=== PATIENT | male | born 1955 | race Caucasian/White ===

== ENCOUNTER 2020-05-22 08:01 | Outpatient (CLI) | payer MEDICARE, SELFPAY ==
--- NOTE | ~2020-05-22 | XR_ITS ---
EXAMINATION: XR chest 2V DATE: 05/22/2020 08:23 INDICATION: Cough TECHNIQUE: PA and lateral views of the chest were obtained. COMPARISON: Chest radiograph dated 01/25/2019 FINDINGS: The lungs remain clear with no focal airspace opacities, pulmonary edema, pleural effusion or pneumot horax. The cardiomediastinal silhouette is normal. Partially visualized right total shoulder arthropl asty. IMPRESSION: 1. No acute cardiopulmonary disease. Reviewed, dictated and finalized at location A.
[2020-05-22 08:25] LABS: Basophils Percent Auto 0.5 % (0.2-1.2); Eosinophils Absolute Auto 0.4 K/mm3 (0-0.3); Eosinophils Percent Auto 7.1 % (0-4.4); Hematocrit 44.2 % (42.0-52.0); Hemoglobin 15.1 g/dL (14.0-18.0); Immature Granulocyte Absolute 0.01 K/mm3 (0.00-0.031); Immature Granulocyte Percent A 0.2 % (0-0.5); Lymphocytes Percent Auto 9.9 % (18.3-44.2); Mean Corpuscular HGB Conc 34.2 g/dl (32-36); Mean Corpuscular Hemoglobin 32.3 pg (26-34); Mean Corpuscular Volume 94.6 fl (80-100); Mean Platelet Volume 11.1 fl (7.4-10.4); Monocytes Absolute Auto 0.6 K/mm3 (0.1-0.6); Monocytes Percent Auto 9.2 % (2.6-8.5); Neutrophils Absolute Auto 4.5 K/mm3 (1.3-6.7); Neutrophils Percent Auto 73.1 % (45.5-73.1); Platelet Count Result 186 k/mm3 (150-375); Red Blood Count 4.67 M/mm3 (4.6-6.20); Red Cell Distribution Width 12.1 % (11.5-14.5); White Blood Count 6.1 K/mm3 (4.5-10.0)
[2020-05-22 08:32] LABS: Cholesterol 142 mg/dL (0-200); HDL Direct 57 mg/dL; Triglycerides 151 mg/dL (<150)
[2020-05-22 08:42] LABS: LDL Cholesterol Direct 62 mg/dL
== END 2020-05-22 08:02 | disposition home or self-care (01) ==
PROVIDERS: PCP Internal Medicine; Visit Provider Internal Medicine
DX: E78.5 Hyperlipidemia, unspecified (principal); R05 Cough; Z79.899 Other long term (current) drug therapy
CPT/HCPCS: 36415; 71046; 80061; 84443; 85025

== ENCOUNTER 2020-06-11 07:52 | Outpatient (CLI) | payer MEDICARE, SELFPAY ==
[2020-06-11 08:39] LABS: CRP 0.8 mg/dL (<1.0); Uric Acid 6.4 mg/dL (3.5-8.5)
[2020-06-11 08:40] LABS: Rheumatoid Factor < 8.6 IU/ML (<12)
[2020-06-11 08:49] LABS: Erythrocyte Sedimentation Rate 19 mm/hr (0-20)
[2020-06-16 14:53] LABS: Anti Cyclic Citrullinated Pept <16 Units (<20)
[2020-06-17 14:01] LABS: Reference Lab Test Result Positive
== END 2020-06-11 07:53 | disposition home or self-care (01) ==
PROVIDERS: PCP Internal Medicine; Visit Provider Internal Medicine
DX: M10.9 Gout, unspecified (principal); Z86.19 Personal history of other infectious and parasitic diseases
CPT/HCPCS: 36415; 84550; 85652; 86140; 86200; 86430; 86769

== ENCOUNTER 2020-06-17 14:13 | Outpatient (CLI) | payer MEDICARE, SELFPAY ==
--- NOTE | ~2020-06-17 | CT_ITS ---
EXAMINATION: CT sinus wo con EXAM DATE: 06/17/2020 14:54 INDICATION: Generalized headache. TECHNIQUE: Spiral CT of the sinuses was acquired in the axial plane. Coronal and sagittal reformatte d images were also reviewed. The dose-length product (DLP) for this examination was 297.72 mGy-cm. Iterative reconstruction (ASIR) was used as dose reduction technique. Comparison is made to prior exa mination from 08/08/2008. FINDINGS: The sinuses are normally developed. There is mild bilateral ethmoid mucoperiosteal thick ening. No sinus air-fluid levels. The ostiomeatal units are patent. There is no sinus wall thicken ing. There is mild to moderate leftward nasal septal deviation. The mastoid air cells and middle ears are well aerated. External auditory canals are patent. The orbits and visualized soft tissu es are unremarkable. IMPRESSION: Mild ethmoid mucoperiosteal thickening. Reviewed, dictated and finalized at location A.
--- NOTE | ~2020-06-17 | CT_ITS ---
EXAMINATION: CT brain wo/w con DATE: 06/17/2020 14:55 INDICATION: Generalized headache TECHNIQUE: Computed tomography (CT) of the head was performed without and subsequently with 100 cc Om nipaque 350 intravenous contrast. The mA was adjusted according to patient size. Iterative reconstruc tion technique was employed. Exam dose: 1210.67 mGy-cm total exam DLP. COMPARISON: None FINDINGS: No intracranial mass lesion or hemorrhage or cerebrovascular accident is evident. No midlin e shift or mass effect. Bilateral carotid siphon internal carotid artery calcifications are noted. There is nonspecific dimin ished attenuation of the cerebral white matter, likely due to chronic small vessel ischemic changes. No subdural or epidural hematoma. No fracture or bone destruction of the cranial vault. There is some soft tissue thickening of the eth moid air cells but the included paranasal sinuses and mastoid air cells are otherwise unremarkable. IMPRESSION: Cerebral atherosclerosis and likely chronic small vessel ischemic changes of the cerebra l white matter No acute intracranial abnormality Reviewed, dictated and finalized at Location A. Reviewed, dictated and finalized at location B. IMPRESSION: Cerebral atherosclerosis and likely chronic small vessel ischemic changes of the cerebral white matter No acute intracranial abnormality
[2020-06-17 14:43] LABS: Estimated Glomerular Filt Rate > 60
== END 2020-06-17 14:14 | disposition home or self-care (01) ==
PROVIDERS: PCP Internal Medicine; Visit Provider Internal Medicine
DX: R51 Headache (principal); I67.2 Cerebral atherosclerosis
CPT/HCPCS: 36415; 70470; 70486; Q9967

== ENCOUNTER 2020-09-24 07:15 | Outpatient (CLI) | payer MEDICARE, SELFPAY ==
[2020-09-24 09:01] LABS: Alanine Aminotransferase 48 U/L (4-50); Albumin Level 4.4 g/dL (3.5-5.1); Alkaline Phosphatase 81 U/L (38-126); Anion Gap 9 mmol/L (8-16); Aspartate Amino Transferase 61 U/L (17-59); Bilirubin,Total 0.6 mg/dL (0.2-1.3); Blood Urea Nitrogen 31 mg/dL (9-20); Calcium 9.4 mg/dL (8.4-10.2); Carbon Dioxide 28 mmol/L (22-30); Chloride 102 mmol/L (98-107); Cholesterol 157 mg/dL (0-200); Estimated Glomerular Filt Rate > 60; Glucose 100 mg/dL (75-110); HDL Direct 61 mg/dL; Potassium 4.5 mmol/L (3.4-5.0); Sodium 139 mmol/L (137-145); Triglycerides 71 mg/dL (<150)
[2020-09-24 09:08] LABS: LDL Cholesterol Direct 69 mg/dL
== END 2020-09-24 07:16 | disposition home or self-care (01) ==
PROVIDERS: PCP Internal Medicine; Visit Provider Internal Medicine
DX: E78.5 Hyperlipidemia, unspecified (principal); I25.10 Atherosclerotic heart disease of native coronary artery without angina pectoris; Z79.899 Other long term (current) drug therapy; Z86.19 Personal history of other infectious and parasitic diseases
CPT/HCPCS: 36415; 80053; 80061; 86769

== ENCOUNTER 2020-11-26 09:46 | Outpatient (NON) | payer MEDICARE, SELFPAY ==
[2020-11-27 00:16] LABS: SARS-CoV-2 RNA PCR Negative
== END 2020-11-26 09:47 ==
LOC: ANHCOVIDDT 09:48
PROVIDERS: PCP Internal Medicine; Visit Provider Internal Medicine
DX: R05 Cough (principal); Z20.822 Contact with and (suspected) exposure to COVID-19
CPT/HCPCS: C9803; U0003; U0005

== ENCOUNTER 2020-12-17 07:56 | Outpatient (CLI) | payer MEDICARE, SELFPAY ==
[2020-12-17 08:25] LABS: Basophils Absolute Auto 0.1 K/mm3 (0.0-0.1); Basophils Percent Auto 0.8 % (0.2-1.2); Eosinophils Absolute Auto 0.4 K/mm3 (0-0.3); Eosinophils Percent Auto 6.7 % (0-4.4); Hematocrit 44.9 % (42.0-52.0); Hemoglobin 15.5 g/dL (14.0-18.0); Immature Granulocyte Absolute 0.01 K/mm3 (0.00-0.031); Immature Granulocyte Percent A 0.2 % (0-0.5); Lymphocytes Absolute Auto 1.41 K/mm3 (0.9-3.2); Lymphocytes Percent Auto 23.5 % (18.3-44.2); Mean Corpuscular HGB Conc 34.5 g/dl (32-36); Mean Corpuscular Hemoglobin 31.8 pg (26-34); Mean Platelet Volume 10.8 fl (7.4-10.4); Monocytes Absolute Auto 0.5 K/mm3 (0.1-0.6); Monocytes Percent Auto 8.2 % (2.6-8.5); Neutrophils Absolute Auto 3.7 K/mm3 (1.3-6.7); Neutrophils Percent Auto 60.6 % (45.5-73.1); Platelet Count Result 163 k/mm3 (150-375); Red Blood Count 4.88 M/mm3 (4.6-6.20); Red Cell Distribution Width 11.8 % (11.5-14.5)
[2020-12-17 08:38] LABS: Alanine Aminotransferase 58 U/L (4-50); Albumin Level 4.2 g/dL (3.5-5.1); Alkaline Phosphatase 78 U/L (38-126); Anion Gap 5 mmol/L (8-16); Aspartate Amino Transferase 59 U/L (17-59); Bilirubin,Total 0.9 mg/dL (0.2-1.3); Blood Urea Nitrogen 17 mg/dL (9-20); Calcium 9.7 mg/dL (8.4-10.2); Carbon Dioxide 31 mmol/L (22-30); Chloride 102 mmol/L (98-107); Cholesterol 153 mg/dL (0-200); Estimated Glomerular Filt Rate > 60; Glucose 97 mg/dL (75-110); HDL Direct 60 mg/dL; Potassium 4.4 mmol/L (3.4-5.0); Sodium 138 mmol/L (137-145); Triglycerides 79 mg/dL (<150); Uric Acid 6.8 mg/dL (3.5-8.5)
[2020-12-17 08:41] LABS: Hemoglobin A1C 5.1 % (<5.7)
[2020-12-17 08:51] LABS: LDL Cholesterol Direct 69 mg/dL
[2020-12-19 21:37] LABS: Homocysteine 8.1 umol/L (<11.4)
[2020-12-19 22:08] LABS: Vitamin D 1,25 (OH)2 Total 56 pg/mL (18-72); Vitamin D2 1,25 (OH)2 <8 pg/mL; Vitamin D3 1,25 (OH)2 56 pg/mL
== END 2020-12-17 07:57 | disposition home or self-care (01) ==
PROVIDERS: PCP Internal Medicine; Visit Provider Internal Medicine
DX: E55.9 Vitamin D deficiency, unspecified (principal); R79.89 Other specified abnormal findings of blood chemistry; E78.5 Hyperlipidemia, unspecified; M10.9 Gout, unspecified; Z79.899 Other long term (current) drug therapy
CPT/HCPCS: 36415; 80053; 80061; 82652; 83036; 83090; 84443; 84550; 85025

== ENCOUNTER 2021-03-13 07:37 | Outpatient (CLI) | payer MEDICARE, SELFPAY ==
[2021-03-13 08:17] LABS: Cholesterol 134 mg/dL (0-200); HDL Direct 59 mg/dL; Triglycerides 77 mg/dL (<150); Uric Acid 7.8 mg/dL (3.5-8.5)
[2021-03-13 08:28] LABS: LDL Cholesterol Direct 50 mg/dL
== END 2021-03-13 07:38 | disposition home or self-care (01) ==
PROVIDERS: PCP Internal Medicine; Visit Provider Internal Medicine
DX: M10.9 Gout, unspecified (principal); Z79.899 Other long term (current) drug therapy
CPT/HCPCS: 36415; 80061; 84550

== ENCOUNTER 2021-03-14 13:08 | Outpatient (CLI) | payer MEDICARE, SELFPAY ==
--- NOTE | ~2021-03-14 | XR_ITS ---
EXAMINATION: XR foot LT standing 2V, XR foot RT standing 2V DATE: 03/14/2021 13:34 INDICATION: Bilateral foot pain and swelling centered at the great toes. TECHNIQUE: 1. Dorsoplantar and lateral views of the left foot were obtained. 2. Dorsoplantar and lateral views of the right foot were obtained. COMPARISON: None. FINDINGS: There is some splaying of the toes of both feet with crossover of the fourth and fifth toes on both t he right and left. Alignment is otherwise normal at both feet. No fracture. Mild polyarticular osteoa rthritis at a few bilateral predominantly distal interphalangeal joints. There is prominent soft tiss ue swelling surrounding the bilateral first metatarsophalangeal joints with associated globular subtl e amorphous calcific density. No erosions. IMPRESSION: 1. Periarticular soft tissue calcifications at the bilateral first metatarsophalangeal joints. Differ ential includes crystalline deposition disease including gout, calcium pyrophosphate deposition (CPPD ) disease and hydroxyapatite deposition disease (HADD), calcific per arthritis, tumoral calcinosis, c ollagen vascular diseases and end-stage renal disease or other derangements of calcium homeostasis. Reviewed, dictated and finalized at location A. IMPRESSION: 1. Periarticular soft tissue calcifications at the bilateral first metatarsopha langeal joints. Differential includes crystalline deposition disease including gout, calcium pyrophosphate deposition (CPPD) disease and hydroxyapatite deposi tion disease (HADD), calcific per arthritis, tumoral calcinosis, collagen vascu lar diseases and end-stage renal disease or other derangements of calcium homeo stasis.
== END 2021-03-14 13:09 | disposition home or self-care (01) ==
PROVIDERS: PCP Internal Medicine; Visit Provider Internal Medicine
DX: M79.671 Pain in right foot (principal); M79.672 Pain in left foot; M25.872 Other specified joint disorders, left ankle and foot; M25.871 Other specified joint disorders, right ankle and foot
CPT/HCPCS: 73620

== ENCOUNTER 2021-07-07 08:20 | Outpatient (CLI) | payer MEDICARE, SELFPAY ==
[2021-07-07 09:11] LABS: Cholesterol 121 mg/dL (0-200); HDL Direct 51 mg/dL; Triglycerides 60 mg/dL (<150)
[2021-07-07 09:23] LABS: LDL Cholesterol Direct 51 mg/dL
== END 2021-07-07 08:21 | disposition home or self-care (01) ==
PROVIDERS: PCP Internal Medicine; Visit Provider Internal Medicine
DX: I25.10 Atherosclerotic heart disease of native coronary artery without angina pectoris (principal)
CPT/HCPCS: 36415; 80061

== ENCOUNTER 2021-09-18 07:46 | Outpatient (CLI) | payer MEDICARE, SELFPAY ==
[2021-09-18 08:27] LABS: Basophils Absolute Auto 0.1 K/mm3 (0.0-0.1); Basophils Percent Auto 0.8 % (0.2-1.2); Eosinophils Absolute Auto 0.5 K/mm3 (0-0.3); Eosinophils Percent Auto 8.4 % (0-4.4); Hematocrit 49.1 % (42.0-52.0); Hemoglobin 16.8 g/dL (14.0-18.0); Immature Granulocyte Absolute 0.03 K/mm3 (0.00-0.031); Immature Granulocyte Percent A 0.5 % (0-0.5); Lymphocytes Absolute Auto 1.24 K/mm3 (0.9-3.2); Lymphocytes Percent Auto 20.1 % (18.3-44.2); Mean Corpuscular HGB Conc 34.2 g/dl (32-36); Mean Corpuscular Hemoglobin 32.7 pg (26-34); Mean Corpuscular Volume 95.7 fl (80-100); Mean Platelet Volume 12.4 fl (7.4-10.4); Monocytes Absolute Auto 0.5 K/mm3 (0.1-0.6); Monocytes Percent Auto 8.4 % (2.6-8.5); Neutrophils Absolute Auto 3.8 K/mm3 (1.3-6.7); Neutrophils Percent Auto 61.8 % (45.5-73.1); Platelet Count Result 190 k/mm3 (150-375); Red Blood Count 5.13 M/mm3 (4.6-6.20); Red Cell Distribution Width 12.6 % (11.5-14.5); White Blood Count 6.2 K/mm3 (4.5-10.0)
[2021-09-18 08:28] LABS: Hemoglobin A1C 4.8 % (<5.7)
[2021-09-18 08:41] LABS: Add Urine Microscopic? YES; Appearance Urine Clear (Clear); Bilirubin Urine Negative (Negative); Blood Urine Negative (Negative); Color Urine Yellow (Yellow); Glucose Urine UA Negative (Negative); Ketones Urine Negative (Negative); Leukocyte Esterase Ur Negative LEU/UL (Negative); Mucus Urine Rare /lpf; Nitrate Urine Negative (Negative); Protein Urine 2+ mg/dL (Negative); Specific Grav Ur 1.018 (1.001-1.035); Urobilinogen Urine Negative mg/dL (<2.0); WBC Urine 0-3 /hpf
[2021-09-18 08:42] LABS: Alanine Aminotransferase 45 U/L (4-50); Albumin Level 4.9 g/dL (3.5-5.1); Alkaline Phosphatase 104 U/L (38-126); Anion Gap 13 mmol/L (8-16); Aspartate Amino Transferase 61 U/L (17-59); Bilirubin,Total 0.9 mg/dL (0.2-1.3); Blood Urea Nitrogen 21 mg/dL (9-20); Calcium 9.9 mg/dL (8.4-10.2); Carbon Dioxide 28 mmol/L (22-30); Chloride 101 mmol/L (98-107); Cholesterol 174 mg/dL (0-200); Estimated Glomerular Filt Rate > 60; Glucose 97 mg/dL (65-110); HDL Direct 85 mg/dL; Sodium 142 mmol/L (137-145); Triglycerides 67 mg/dL (<150)
[2021-09-18 08:53] LABS: LDL Cholesterol Direct 68 mg/dL
[2021-09-18 09:12] LABS: Prostate Specific Antigen 1.1 ng/mL (< OR = 4.0)
[2021-09-22 16:55] LABS: Homocysteine 12.4 umol/L (<11.4)
== END 2021-09-18 07:47 | disposition home or self-care (01) ==
LOC: ANHLAB 07:47
PROVIDERS: PCP Internal Medicine; Visit Provider Internal Medicine
DX: E78.2 Mixed hyperlipidemia (principal); Z79.899 Other long term (current) drug therapy; R79.89 Other specified abnormal findings of blood chemistry; Z12.5 Encounter for screening for malignant neoplasm of prostate
CPT/HCPCS: 36415; 80053; 80061; 81001; 83036; 83090; 84153; 85025; G0103

== ENCOUNTER → 2021-10-29 11:39 | Outpatient (CLI) | payer MEDICARE, SELFPAY ==
--- NOTE | ~2021-10-29 | US_ITS ---
US retroperitoneal comp 10/29/2021 11:57 Procedure: Realtime transabdominal ultrasound of the kidneys and bladder. Indication: Renal stone. Comparison: CT dated 11/02/2013 and ultrasound dated 04/14/2018 Findings: Renal echotexture is normal bilaterally without hydronephrosis, contour deforming mass or r enal calculus. The right kidney measures 10.1 cm and left kidney measures 11 cm. Bladder within norm al limits. Impression: 1: Unremarkable renal ultrasound. No stones, masses or hydronephrosis. Reviewed, dictated and finalized at location A. EMIC COACH Impression: 1: Unremarkable renal ultrasound. No stones, masses or hydronephrosis.
--- NOTE | ~2021-10-29 | XR_ITS ---
XR abdomen/kub 1V 10/29/2021 12:12 Indication: Renal stones Procedure: KUB Comparison: No prior studies for comparison. Findings: Elevated right diaphragm. Nonobstructive bowel gas pattern with large amount of retained fe shasha material in the colon. Bowel content limits evaluation for renal stones. No definite nephrolithia sis. Advanced lumbar spondylosis with levoscoliosis. Impression: 1: Nonobstructive bowel gas pattern with large amount of retained fecal material. Reviewed, dictated and finalized at location A. MANAGEMENT CONSULTANT Impression: 1: Nonobstructive bowel gas pattern with large amount of retained fecal materia l.
== END ==
PROVIDERS: Visit Provider Urology
DX: N20.0 Calculus of kidney (principal)
CPT/HCPCS: 74018; 76770

== ENCOUNTER 2021-12-08 07:34 | Outpatient (CLI) | payer MEDICARE, SELFPAY ==
--- NOTE | ~2021-12-08 | US_ITS ---
EXAMINATION: US abdomen complete EXAM DATE: 12/08/2021 08:23 INDICATION: R19.00 - Intra-abdominal and pelvic swelling, mass and wilton... Pulsatile midabdominal mass. TECHNIQUE: Multiple grayscale and Doppler images of the complete abdomen were obtained (by a technolo gist who performed the scan) and subsequently reviewed. Comparison is made to prior examination from 04/14/2018. FINDINGS: The abdominal aorta is normal in caliber. Visualized portion IVC is patent. The pancreatic head a nd body are normal in appearance. The pancreatic tail is not visualized. The liver has normal echogenicity and contour. There are no focal liver lesions identified. There is no evidence of intrahepatic biliary duct dilation. Portal venous flow was seen in the hepatopedal , normal direction and has normal Doppler waveform. Common bile duct measures 5 mm, which is normal. The gallbladder wall is normal in thickness, with ex pected amount of distention. No sonographic evidence of pericholecystic fluid. There is no cholelit hiases. Technologist performing exam reports patient did not demonstrate sonographic Cain's sign. Please note that this sign is less reliable in patients who have received pain medication. Right kidney: There is normal contour and echogenicity. It measures 10.9 x 6.5 x 5.8 centimeters. There are no focal renal lesions identified. There is no hydronephrosis. Left kidney: There is normal contour and echogenicity. It measures 10.6 x 6.4 x 5.0 centimeters. T here are no focal renal lesions identified. There is no hydronephrosis. The spleen measures 11 centimeters and is morphologically normal. IMPRESSION: Unremarkable complete abdominal ultrasound exam. Reviewed, dictated and finalized at location A. CEMENTER
== END 2021-12-08 07:35 | disposition home or self-care (01) ==
LOC: ANHIMG 07:37
PROVIDERS: PCP Internal Medicine; Visit Provider Internal Medicine
DX: R19.00 Intra-abdominal and pelvic swelling, mass and lump, unspecified site (principal)
CPT/HCPCS: 76700

== ENCOUNTER 2021-12-23 10:27 | Outpatient (CLI) | payer MEDICARE, SELFPAY ==
--- NOTE | ~2021-12-23 | XR_ITS ---
XR chest 2V DATE: 12/23/2021 10:40 INDICATION: Chest pain, persistent cough TECHNIQUE: PA and lateral views COMPARISON: 05/22/2020 PA and lateral chest FINDINGS: Normal heart size. Is aortic arch calcification. No hilar or mediastinal enlargement. There is mild elevation of the right leaf of the diaphragm. No pulmonary infiltrate or consolidation, pleural effusion or pulmonary vascular congestion or pneumothorax is detected. Right shoulder arthroplasty. Mild dextroscoliosis and degenerative change of the thoracic spine. IMPRESSION: No active cardiopulmonary disease or significant change since 05/22/2020 Reviewed, dictated and finalized at location A. T BOX ATTENDANT IMPRESSION: No active cardiopulmonary disease or significant change since 020
== END 2021-12-23 10:28 | disposition home or self-care (01) ==
PROVIDERS: PCP Internal Medicine; Visit Provider Internal Medicine
DX: R07.89 Other chest pain (principal)
CPT/HCPCS: 71046

== ENCOUNTER 2022-02-23 07:36 | Outpatient (CLI) | payer MEDICARE, SELFPAY ==
[2022-02-23 08:20] LABS: Basophils Absolute Auto 0.1 K/mm3 (0.0-0.1); Basophils Percent Auto 1.2 % (0.2-1.2); Eosinophils Absolute Auto 0.5 K/mm3 (0-0.3); Hematocrit 45.8 % (42.0-52.0); Hemoglobin 15.1 g/dL (14.0-18.0); Immature Granulocyte Absolute 0.01 K/mm3 (0.00-0.031); Immature Granulocyte Percent A 0.2 % (0-0.5); Lymphocytes Absolute Auto 1.63 K/mm3 (0.9-3.2); Mean Corpuscular Hemoglobin 32.4 pg (26-34); Mean Corpuscular Volume 98.3 fl (80-100); Mean Platelet Volume 12.5 fl (7.4-10.4); Monocytes Absolute Auto 0.7 K/mm3 (0.1-0.6); Monocytes Percent Auto 10.1 % (2.6-8.5); Neutrophils Absolute Auto 3.6 K/mm3 (1.3-6.7); Neutrophils Percent Auto 55.5 % (45.5-73.1); Platelet Count Result 176 k/mm3 (150-375); Red Blood Count 4.66 M/mm3 (4.6-6.20); Red Cell Distribution Width 12.6 % (11.5-14.5); White Blood Count 6.5 K/mm3 (4.5-10.0)
[2022-02-23 08:31] LABS: Hemoglobin A1C 4.8 % (<5.7)
[2022-02-23 08:32] LABS: Alanine Aminotransferase 27 U/L (4-50); Albumin Level 4.2 g/dL (3.5-5.1); Alkaline Phosphatase 74 U/L (38-126); Anion Gap 7 mmol/L (8-16); Aspartate Amino Transferase 48 U/L (17-59); Bilirubin,Total 0.9 mg/dL (0.2-1.3); Blood Urea Nitrogen 22 mg/dL (9-20); Calcium 8.9 mg/dL (8.4-10.2); Carbon Dioxide 28 mmol/L (22-30); Chloride 103 mmol/L (98-107); Cholesterol 158 mg/dL (0-200); Estimated Glomerular Filt Rate > 60; Glucose 107 mg/dL (65-110); HDL Direct 65 mg/dL; Potassium 4.6 mmol/L (3.4-5.0); Sodium 138 mmol/L (137-145); Triglycerides 63 mg/dL (<150)
[2022-02-23 08:40] LABS: Appearance Urine Clear (Clear); Bilirubin Urine Negative (Negative); Blood Urine 1+ (Negative); Color Urine Yellow (Yellow); Glucose Urine UA Negative (Negative); Ketones Urine Negative (Negative); Leukocyte Esterase Ur Negative LEU/UL (Negative); Nitrate Urine Negative (Negative); Protein Urine 1+ mg/dL (Negative); Urobilinogen Urine 0.2 mg/dL (<2.0); pH Urine 6.5 (5.0-9.0)
[2022-02-23 08:43] LABS: LDL Cholesterol Direct 56 mg/dL
[2022-02-23 08:53] LABS: Mucus Urine Rare /lpf; Squamous Epithelial Cell Urine Rare /hpf (Few); WBC Urine 0-3 /hpf
[2022-02-23 08:57] LABS: Add Urine Microscopic? YES
[2022-02-23 09:25] LABS: Free T4 Free Thyroxine 1.05 ng/mL (0.78-2.19); Vitamin D 25 Hydroxy 78.3 ng/mL
[2022-02-25 20:26] LABS: Homocysteine 11.3 umol/L (<11.4)
== END 2022-02-23 07:37 | disposition home or self-care (01) ==
PROVIDERS: PCP Internal Medicine; Visit Provider Internal Medicine
DX: E55.9 Vitamin D deficiency, unspecified (principal); Z79.899 Other long term (current) drug therapy; Z13.29 Encounter for screening for other suspected endocrine disorder
CPT/HCPCS: 36415; 80053; 80061; 81001; 82306; 83036; 83090; 84439; 84443; 85025

== ENCOUNTER 2022-06-19 07:31 | Outpatient (CLI) | payer MEDICARE, SELFPAY ==
[2022-06-19 08:05] LABS: Basophils Absolute Auto 0.1 K/mm3 (0.0-0.1); Basophils Percent Auto 1.3 % (0.2-1.2); Eosinophils Absolute Auto 0.4 K/mm3 (0-0.3); Hematocrit 45.9 % (42.0-52.0); Hemoglobin 15.6 g/dL (14.0-18.0); Lymphocytes Absolute Auto 1.53 K/mm3 (0.9-3.2); Lymphocytes Percent Auto 24.7 % (18.3-44.2); Mean Corpuscular Hemoglobin 32.6 pg (26-34); Mean Platelet Volume 11.3 fl (7.4-10.4); Monocytes Absolute Auto 0.6 K/mm3 (0.1-0.6); Neutrophils Absolute Auto 3.7 K/mm3 (1.3-6.7); Platelet Count Result 209 k/mm3 (150-375); Red Blood Count 4.78 M/mm3 (4.6-6.20); Red Cell Distribution Width 11.9 % (11.5-14.5); White Blood Count 6.2 K/mm3 (4.5-10.0)
[2022-06-19 08:17] LABS: Alanine Aminotransferase 30 U/L (6-50); Albumin Level 4.5 g/dL (3.5-5.1); Alkaline Phosphatase 89 U/L (38-126); Anion Gap 6 mmol/L (8-16); Aspartate Amino Transferase 46 U/L (17-59); Bilirubin,Total 0.9 mg/dL (0.2-1.3); Blood Urea Nitrogen 24 mg/dL (9-20); Calcium 9.2 mg/dL (8.4-10.2); Carbon Dioxide 28 mmol/L (22-30); Chloride 102 mmol/L (98-107); Cholesterol 174 mg/dL (0-200); Estimated Glomerular Filt Rate > 60; Glucose 107 mg/dL (65-110); HDL Direct 63 mg/dL; Potassium 5.2 mmol/L (3.4-5.0); Sodium 136 mmol/L (137-145); Triglycerides 75 mg/dL (<150)
[2022-06-19 08:28] LABS: LDL Cholesterol Direct 70 mg/dL
[2022-06-19 08:49] LABS: Hemoglobin A1C 4.9 % (<5.7)
== END 2022-06-19 07:32 | disposition home or self-care (01) ==
LOC: ANHLAB 07:34
PROVIDERS: PCP Internal Medicine; Visit Provider Internal Medicine
DX: E78.2 Mixed hyperlipidemia (principal); E55.9 Vitamin D deficiency, unspecified; Z13.29 Encounter for screening for other suspected endocrine disorder; Z79.899 Other long term (current) drug therapy
CPT/HCPCS: 36415; 80053; 80061; 82306; 83036; 84439; 84443; 85025

== ENCOUNTER 2022-11-02 09:40 | Outpatient (CLI) | payer MEDICARE, SELFPAY ==
[2022-11-02 10:18] LABS: Basophils Absolute Auto 0.1 K/mm3 (0.0-0.1); Basophils Percent Auto 1.1 % (0.2-1.2); Eosinophils Absolute Auto 0.6 K/mm3 (0-0.3); Eosinophils Percent Auto 8.1 % (0-4.4); Hematocrit 49.9 % (42.0-52.0); Hemoglobin 17.4 g/dL (14.0-18.0); Immature Granulocyte Absolute 0.01 K/mm3 (0.00-0.031); Immature Granulocyte Percent A 0.1 % (0-0.5); Lymphocytes Absolute Auto 1.69 K/mm3 (0.9-3.2); Lymphocytes Percent Auto 22.7 % (18.3-44.2); Mean Corpuscular HGB Conc 34.9 g/dl (32-36); Mean Corpuscular Hemoglobin 31.6 pg (26-34); Mean Corpuscular Volume 90.7 fl (80-100); Mean Platelet Volume 11.5 fl (7.4-10.4); Monocytes Absolute Auto 0.7 K/mm3 (0.1-0.6); Monocytes Percent Auto 8.7 % (2.6-8.5); Neutrophils Absolute Auto 4.4 K/mm3 (1.3-6.7); Neutrophils Percent Auto 59.3 % (45.5-73.1); Platelet Count Result 249 k/mm3 (150-375); White Blood Count 7.5 K/mm3 (4.5-10.0)
[2022-11-02 10:27] LABS: Alanine Aminotransferase 43 U/L (6-50); Albumin Level 4.8 g/dL (3.5-5.1); Alkaline Phosphatase 101 U/L (38-126); Anion Gap 7 mmol/L (8-16); Aspartate Amino Transferase 52 U/L (17-59); Bilirubin,Total 0.5 mg/dL (0.2-1.3); Blood Urea Nitrogen 32 mg/dL (9-20); Calcium 9.6 mg/dL (8.4-10.2); Carbon Dioxide 32 mmol/L (22-30); Chloride 100 mmol/L (98-107); Cholesterol 189 mg/dL (0-200); Estimated Glomerular Filt Rate 51; Glucose 115 mg/dL (65-110); HDL Direct 47 mg/dL; Potassium 4.5 mmol/L (3.4-5.0); Sodium 139 mmol/L (137-145); Triglycerides 84 mg/dL (<150)
[2022-11-02 10:38] LABS: LDL Cholesterol Direct 92 mg/dL
== END 2022-11-02 09:41 | disposition home or self-care (01) ==
PROVIDERS: PCP Internal Medicine; Visit Provider Internal Medicine
DX: E78.2 Mixed hyperlipidemia (principal); Z79.899 Other long term (current) drug therapy
CPT/HCPCS: 36415; 80053; 80061; 85025

== ENCOUNTER 2022-11-05 10:08 | Outpatient (CLI) | payer MEDICARE, SELFPAY ==
--- NOTE | ~2022-11-05 | XR_ITS ---
Clinical Indication: Shortness of breath PA and lateral views of the chest: Comparison: 12/23/2021 Findings: The lungs are clear, without evidence of focal consolidation or pleural effusion. Cardiome diastinal silhouette is within normal limits. Right shoulder arthroplasty noted. Impression: Clear lungs. Reviewed, dictated and finalized at location . MACY RESOURCE TECH Impression: Clear lungs.
== END 2022-11-05 10:09 | disposition home or self-care (01) ==
PROVIDERS: PCP Internal Medicine; Visit Provider Internal Medicine
DX: R06.02 Shortness of breath (principal)
CPT/HCPCS: 71046

== ENCOUNTER 2022-11-11 09:46 | Outpatient (CLI) | payer MEDICARE, SELFPAY ==
--- NOTE | ~2022-11-11 | CT_ITS ---
EXAMINATION: CTA chest PE protocol DATE: 11/11/2022 10:22 INDICATION: Shortness of breath TECHNIQUE: Computed tomography angiography (CTA) of the chest was performed with 100 mL Omnipaque-350 intravenous contrast timed to evaluate the pulmonary arteries. Coronal maximum intensity projection 3D-reconstructions were created by the technologist. The dose-length product (DLP) was 517.15 mGy-cm. Automated exposure control and iterative reconstruction technique were employed. COMPARISON: None. FINDINGS: The pulmonary arteries are well-opacified. No pulmonary embolism is identified. The lungs a re free of acute opacities. No pleural effusion or pneumothorax. Stable nodules of the lungs measurin g up to 4 mm are consistent with old granulomatous disease. There is chronic mild elevation of the ri ght hemidiaphragm. No pathologically enlarged thoracic lymph nodes are identified. The heart size is normal. Calcified coronary artery atherosclerosis is noted. There are changes of right shoulder arthr oplasty. There is moderate thoracic spondylosis. IMPRESSION: 1. No pulmonary embolism or acute cardiopulmonary abnormality. Reviewed, dictated and finalized at location B. NE FIREFIGHTER
[2022-11-11 11:26] LABS: Alveolar/Arterial O2 Gradient 26.7 mmHg; Base Excess ABG 2.6 mEq/l (+/-2.0); Fractional Inspired Oxygen 21 %; Oxygen Saturation ABG 95.4 % (95.0-100.0); Oxyhemoglobin 94.4 % THb (90.0-100.0); PCO2 ABG 40.7 mmHg (35.0-45.0); PO2 ABG 74.3 mmHg (80.0-100.0); PO2 FiO2 Ratio Arterial Blood 3.54 %; Total Hemoglobin 16.6 g/dL (12.0-18.0); pH ABG 7.439 (7.350-7.450)
[2022-11-11 11:27] LABS: Device ROOM AIR; Modified Allen's Test Pass; Site Drawn LEFT RADIAL
== END 2022-11-11 09:47 | disposition home or self-care (01) ==
PROVIDERS: PCP Internal Medicine; Visit Provider Internal Medicine
DX: R06.02 Shortness of breath (principal)
CPT/HCPCS: 36600; 71275; 82805; Q9967

== ENCOUNTER 2022-12-09 09:58 | Outpatient (CLI) | payer MEDICARE, SELFPAY ==
--- NOTE | 2022-12-09 14:29 | WPDPFTINT ---
PFT Procedure Performed PFT Procedure Performed Spirometry with Pre/Post Bronchodilator Plethysmography (Lung Vol) Diffusing Cap (DLCO) Flow Vol Loop PFT Interpretation Lung volumes were measured with the body plethysmography method. Lung volumes are unremarkable. Spirometry showed diminished expiratory flow rates and a diminished FEV1 to FVC ratio 61% consistent with obstructive airway disease. Following administration of a bronchodilator there was no significant increase in the expiratory flow rates. Lung diffusion capacity is within the normal range at 117 % predicted. The flow volume loop is consistent with obstructive airway disease. Impression: Mild obstructive airway disease with no response to bronchodilators on this testing. Lung diffusion capacity within the normal range.
== END 2022-12-09 09:59 | disposition home or self-care (01) ==
LOC: ANHPFT 10:00
PROVIDERS: PCP Internal Medicine; Visit Provider Internal Medicine
DX: R06.2 Wheezing (principal); R06.09 Other forms of dyspnea; R06.02 Shortness of breath; R94.2 Abnormal results of pulmonary function studies
CPT/HCPCS: 94060; 94726; 94729

== ENCOUNTER 2022-12-10 13:32 | Outpatient (CLI) | payer MEDICARE, SELFPAY ==
--- NOTE | 2022-12-10 | ECHO_ITS ---
Patient Info Name: Denton Emerson Age: 66 years : 1955 Gender: Male Ht: 73 in Wt: 204 lbs BSA: 2.20 m2 HR: 63 bpm BP: 154 / 97 mmHg Heart Rhythm: Sinus Rhythm Technical Quality: Good Exam Date: 12/10/2022 1:45 PM Exam Location: [facility] Patient Status: Outpatient Admit Date: 12/10/2022 Staff Ordering Physician: Junie, Macrina Bain LIVING SKILLS ADVISOR Itinerant Teacher Assistant: Luana Hanson RDCS Attending Provider: Junie, Macrina Bain NP Referring Physician: Junie ARTIS; Exam Type: CA echo doppler color flow Study Info Indications R06.02 - Shortness of breath Complete two-dimensional, color flow and Doppler transthoracic echocardiogram is performed. Summary 1. Complete two-dimensional, color flow and Doppler transthoracic echocardiogram is performed. 2. Left ventricular chamber dimension is normal. 3. Left ventricular systolic function is normal, estimated at 60-65%. 4. The left ventricular diastolic function is grade I diastolic dysfunction. 5. Global longitudinal strain is normal at -20 %. 6. Right ventricular systolic function is normal. 7. There is mild tricuspid valve regurgitation. Left Ventricle Left ventricular chamber dimension is normal. Left ventricular systolic function is normal, estimated at 60-65%. There is no increased left ventricular wall thickness. The left ventricular diastolic function is grade I diastolic dysfunction. Global longitudinal strain is normal at -20 %. Right Ventricle Right ventricular chamber dimension is normal. Right ventricular systolic function is normal. Left Atria Left atrial chamber dimension is normal. Right Atria Right atrial chamber dimension is normal. Atrial Septum Intact interatrial septum visualized by color flow imaging. Aortic Valve The aortic valve is trileaflet. There is no aortic valve stenosis. There is no aortic valve regurgitation. There is no aortic valve calcification. Pulmonic Valve The pulmonic valve is not well visualized. Mitral Valve The mitral valve has normal leaflets. There is no mitral valve stenosis. There is trace mitral valve regurgitation. The mitral valve annulus is mildly calcified. Tricuspid Valve The tricuspid valve leaflets are normal. There is no significant tricuspid valve stenosis. There is mild tricuspid valve regurgitation. Pericardium/Pleural There is no pericardial effusion. Aorta The aortic root size at the sinus of Valsalva is normal. Report Signatures
== END 2022-12-10 13:33 | disposition home or self-care (01) ==
LOC: ANHCARD 13:33
PROVIDERS: PCP Internal Medicine; Visit Provider Nurse Practitioner Adult Health
DX: R06.02 Shortness of breath (principal); I36.1 Nonrheumatic tricuspid (valve) insufficiency
CPT/HCPCS: 93306

== ENCOUNTER → 2023-10-05 13:27 | Outpatient (CLI) | payer MEDICARE, SELFPAY ==
--- NOTE | ~2023-10-05 | MR_ITS ---
EXAMINATION: MR cervical spine wo con DATE: 10/05/2023 14:01 INDICATION: Neck pain TECHNIQUE: Magnetic resonance imaging (MRI) of the cervical spine was performed without intravenous c ontrast. Sequences included sagittal T2-weighted FSE, sagittal T2-weighted FS FSE, sagittal T1-weight ed FSE, axial MERGE and axial T2-weighted FSE. COMPARISON: None FINDINGS: There is straightening of the normal cervical lordosis. 1.5 mm retrolisthesis C4 on C5, 1 mm retrolis thesis C5 on C6 and C6 on C7 and 1.5 mm anterolisthesis C7 on T1. Vertebral body heights are normal. Moderate disc height loss at C4-C5, severe disc height loss at C5-C6 and C6-C7 and mild disc height loss at C3-C4 and C7-T1. There are fibrofatty and fibrovascular degenerative endplate changes at C4-C 5 through C6-C7. T1 hyperintense hemangioma at T1. Intervertebral disc heights are normal. Cord signa l intensity is normal. The visualized cervical soft tissues are unremarkable. The following disc leve ls are specifically discussed: C2-C3: The disc does not extend beyond the endplate margin. There is no uncovertebral joint osteoarth ritis. There is moderate to severe bilateral facet joint osteoarthritis. There is no neural foraminal stenosis. There is no central canal stenosis. C3-C4: Disc is bulging. There is mild right and moderate left uncovertebral joint osteoarthritis. The re is moderate bilateral facet joint osteoarthritis. There is mild right and moderate left neural for aminal stenosis. There is mild central canal stenosis. C4-C5: Disc is bulging. There is moderate left and severe right uncovertebral joint osteoarthritis. T here is mild bilateral facet joint osteoarthritis. There is moderate bilateral neural foraminal steno sis. There is mild central canal stenosis. C5-C6: Disc is bulging with superimposed annular fissure and small central disc extrusion with disc m aterial extending up to 4 mm caudal to the level of the superior endplate of C6. There is severe bila teral uncovertebral joint osteoarthritis. There is mild bilateral facet joint osteoarthritis. There i s moderate to severe left and moderate right neural foraminal stenosis. There is mild central canal s tenosis. C6-C7: Disc is bulging. There is severe bilateral uncovertebral joint osteoarthritis. There is mild b ilateral facet joint osteoarthritis. There is moderate bilateral neural foraminal stenosis. There is mild central canal stenosis. C7-T1: Disc does not extend beyond the more posterior T1 endplate margin. There is mild right and mod erate left uncovertebral joint osteoarthritis. There is severe bilateral facet joint osteoarthritis. There is mild bilateral neural foraminal stenosis. There is no central canal stenosis. IMPRESSION: 1. Severe cervical spondylosis. Reviewed, dictated and finalized at location A. NERY PROCESS ENGINEER
== END ==
DX: M54.2 Cervicalgia (principal); M43.02 Spondylolysis, cervical region
CPT/HCPCS: 72141

== ENCOUNTER 2024-08-30 14:37 | Outpatient (CLI) | payer MEDICARE, SELFPAY ==
--- NOTE | ~2024-08-30 | XR_ITS ---
[id number] Ordering provider: Jose Cruz Alexandre MD History: . M79.675 - Pain in left toe(s) HX GOUT . Comparison: None. FINDINGS: BONES: No acute fracture or dislocation. JOINT SPACES: Narrowing of the distal interphalangeal joints. No tarsal coalition. SOFT TISSUES: Soft tissue calcification is seen around the first metatarsophalangeal joint. Evaluatio n for gout should be considered. IMPRESSION: No acute osseous abnormality left foot. Soft tissue calcification around the first metatarsophalangeal joint which may indicate gout. Clinica l correlation advised. Reviewed, dictated and finalized at location A. IMPRESSION: No acute osseous abnormality left foot. Soft tissue calcification around the first metatarsophalangeal joint which may indicate gout. Clinical correlation advised.
[2024-08-30 15:55] LABS: CRP 2.4 mg/dL (<1.0); Cholesterol 152 mg/dL (0-200); HDL Direct 50 mg/dL; Triglycerides 156 mg/dL (<150); Uric Acid 8.7 mg/dL (3.5-8.5)
[2024-08-30 16:05] LABS: LDL Cholesterol Direct 62 mg/dL
[2024-08-30 16:14] LABS: Erythrocyte Sedimentation Rate 24 mm/hr (0-20)
== END 2024-08-30 14:38 | disposition home or self-care (01) ==
LOC: ANHLAB 14:42
PROVIDERS: PCP Internal Medicine; Visit Provider Internal Medicine
DX: M79.89 Other specified soft tissue disorders (principal); M79.675 Pain in left toe(s); I25.10 Atherosclerotic heart disease of native coronary artery without angina pectoris; E78.5 Hyperlipidemia, unspecified; M10.9 Gout, unspecified
CPT/HCPCS: 36415; 73630; 80061; 84550; 85652; 86140

== ENCOUNTER 2024-12-22 13:18 | Outpatient (CLI) | payer MEDICARE, SELFPAY ==
--- NOTE | ~2024-12-22 | XR_ITS ---
EXAMINATION: XR knee RT 3V DATE: 12/22/2024 13:43 INDICATION: Unspecified fall, initial encounter. TECHNIQUE: 3 views of right knee including standing views were obtained. COMPARISON: None. FINDINGS: There is a total right knee arthroplasty in near-anatomic alignment. No periprosthetic luce ncy to suggest loosening or infection. No fracture. There is a small knee joint effusion. IMPRESSION: 1. Total right knee arthroplasty in near-anatomic alignment. 2. Small right knee joint effusion. Reviewed, dictated and finalized at location A. [facility]
--- OUTSIDE RECORDS SUMMARY | 2024-12-22 13:22 | XMS_ITS | Referral Summary ---
Author Organization [facility] Induction Manager Address [address] [place] [address] Care Team Providers Care Certified Nurse Practitioner Name Role Phone Jose Cruz Alexandre MD Primary Care Provider [phone] Source Comments [facility] Induction Manager,non-owned Affiliates and Associated Physician Practices is amultiple site organization consisting of ambulatory clinics and hospital sitesin [place], [place], [place] and [place]. This disclosure is being madepursuant to the Care Everywhere program and may not contain all information available regarding this patient. Last updated 18.[facility] Induction Manager Allergies No known active allergies Medications * Be aware that medications may not be up to date on this document. Alwaysverify current medications with the patient. Medication Sig Dispensed Refills Start Date End Date Status ramipril (ALTACE) 10 MG capsule Take 20 mg by mouth once daily Active metoprolol succinate XL 24hr (TOPROL XL) 100 MG tablet Take 100 mg by mouth once daily Active diltiazem coated beads 24hr (CARTIA XT) 240 MG capsule Take 240 mg by mouth once daily Active atorvastatin (LIPITOR) 40 MG tablet Take 40 mg by mouth once daily Active naproxen sodium (ALEVE) 220 MG tablet Take 440 mg by mouth 2 times daily as needed for Pain Active ALPRAZolam (XANAX) 0.25 MG tablet Take 0.25 mg by mouth 3 times daily as needed for Anxiety Active aspirin EC (ECOTRIN) 81 MG tablet Take 81 mg by mouth once daily Active Benge-3 Fatty Acids (OMEGA-3 FISH OIL) 1200 MG Take 3,600 mg by mouth once daily Active rivaroxaban (XARELTO) 20 MG tablet Take 20 mg by mouth once daily Active HYDROcodone-acetamino phen (NORCO) 5-325 MG tablet Take 1 Tab by mouth every 4 hours as needed for Pain 30 Tab 10/30/2016 Active clopidogrel (PLAVIX) 75 MG tablet Take 75 mg by mouth once daily 05/12/2019 Active methylPREDNISolone (MEDROL DOSEPAK) 4 MG tablet Take by mouth as directed 1 Each 11/21/2020 Active Active Problems Problem Noted Date Diagnosed Date Osteoarthritis of left knee 09/26/2019 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 11/17/2016 Acute meniscal tear of left knee 10/25/2016 Adiposity 04/30/2015 Overview (11/21/2020): Overview: Obesity Benign hypertensive heart di sease 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 failure 04/30/2015 Overview (11/21/2020): Overview: Hypertensive heart disease, benign, without CHF Coronary arteriosclerosis in [place] artery 04/30 Overview (11/21/2020): Overview: CAD in [place] artery History of anticoagulant therapy 04/30/2015 Overview (11/21/2020): Overview: Chronic anticoagulation Hyperlipidemia 04/30/2015 Overview (11/21/2020): Overview: HLD (hyperlipidemia) Paroxysmal atrial fibrillation 04/30/2015 Overview (11/21/2020): Overview: PAF (paroxysmal atrial fibrillation) Presence of stent in coronary artery 04/30/2015 Overview (11/21/2020): Overview: H/O heart artery stent Knee pain 07/12/2014 Sprain rotator cuff 05/05/2005 Social History Tobacco Use Types Packs/Day Years Used Date Smoking Tobacco: Former Cigarettes Q uit: 11/28/1969 Smokeless Tobacco: Never Tobacco Cessation:Counseling Given: Yes Alcohol Use Standard Drinks/Week Comments Yes 0 (1 standard drink = 0.6 oz pur e alcohol) moderately Sex and Gender Information Value Date Recorded Sex Assigned at Not on file Gender Identity Not on file Sexual Orientation Not on file Last Filed Vital Signs Vital Sign Reading Time Taken Comments Blood Pressure 167/89 11/21/2020 10:18 AM TREE FALLER Pulse 58 11/21/2020 10:18 AM TREE FALLER Temperature 36.6 C (97.9 F) 11/21/2020 10:18 AM TREE FALLER Respiratory Rate 15 10/30/2016 2:51 PM TREE FALLER Oxygen Saturation 98% 09/25/2019 10:10 AM TREE FALLER Inhaled Oxygen Concentration - - Weight 88.5 kg (195 lb) 01/30/2021 2:02 PM CDT Height 185.4 cm (6' 1 ) 01/30/2021 2:02 PM CDT Body Mass Index 25.73 01/30/2021 2:02 PM CDT Functional Status Functional Status Response Date of Assess ment Is person deaf or have serious hearing difficult y? No 10/29/2016 Is person blind or have serious difficulty seein g? No 10/29/2016 Does person have serious dif ficulty walking/climbing stairs? No 10/29/2016 Does person have difficulty dressing/bathing? No 10/29/2016 Does person have difficulty doing errands alone? No 10/29/2016 Cognitive Status Response Date of Assessm ent Does person have difficulty concentrating/remembering/making decisions? No 10/29/2016 Plan of Treatment Not on file Medical Devices Implanted Type Area Clock Assembler Device Identifier Shelf Expiration Date Model / Serial / Lot Brien Bone Palacos R Implanted:Qty: 2 on 08/08/2015 by Vikas Durán MD at [facility] Right: Knee [employer] 11/15/2019 [id number] / / [id number] Size 6, Right Tibial Baseplate Implanted:Qty: 1 on 08/08/2015 by Vikas Durán MD at [facility] Right: Knee [employer] 04/15/2025 [id number] / / [id number] Size 7, Right Femoral Component Implanted:Qty: 1 on 08/08/2015 by Vikas Durán MD at [facility] Right: Knee [employer] 04/15/2025 [id number] / / [id number] 35mm Oval Patellar Component Implanted:Qty: 1 on 08/08/2015 by Vikas Durán MD at [facility] Right: Knee [employer] 04/15/2025 [id number] / / [id number] Right, Size 5-6, 9mm Journey Ii Cr, Xlpe, A/P 52 Mm, M/L 74 Mm Articular Insert Implanted:Qty: 1 on 08/08/2015 by Vikas Durán MD at [facility] Right: Knee [employer] 10/15/2024 [id number] / / [id number] Standard Humeral Stem Implanted:Qty: 1 on 03/09/2016 by Chance Billings MD at [facility] Right: Shoulder [employer] 08/23/2020 [id number] / [id number] / Brien Bone [place]-G Hv 40/20 Implanted:Qty: 1 on 03/09/2016 by Chance Billings MD at [facility] Right: Shoulder [employer] 08/14/2017 [id number] / / [id number] Cortiloc Pegged Glenoid Implanted:Qty: 1 on 03/09/2016 by Chance Billings MD at [facility] Right: Shoulder [employer] 10/15/2020 [id number] / [id number] / Aequalis Humeral Head Implanted:Qty: 1 on 03/09/2016 by Chance Billings MD at [facility] Right: Shoulder [employer] 04/15/2020 [id number] / [id number] / Deep Dished Articular Insert Implanted:Qty: 1 on 10/29/2016 by Vikas Durán MD at [facility] Right: Knee [employer] 01/17/2026 [id number] / / [id number] Explanted Type Area Clock Assembler Device Identifier Shelf Expiration Date Model / Serial / Lot Cutting Guide Implanted:Qty: 1 Explanted:Qty: 1 on 08/08/2015 at [facility] Right: Knee [employer] 10/23/2015 [id number] / / [id number] Procedures Procedure Name Priority Date/Time Associated Diagnosis Comments COMPREHENSIVE METABOLIC PANEL Routine 10/20/2016 11:41 AM TREE FALLER Mechanical loosening of internal right knee prosthetic joint, initial encounter (HCC) from Last 3 Months or Most Recently Relevant to Health Maintenance Results * (ABNORMAL) COMPREHENSIVE METABOLIC PANEL (10/20/2016 11:41 AM TREE FALLER) Glucose 123(H) 74 - 106 mg/dL 10/20/2016 12:[address] [facility] Sodium 140 136 - 145 mmol/L 10/20/2016 12:[address] [facility] Potassium 4.8 3.5 - 5.1 mmol/L 10/20/2016 12:[address] [facility] Chloride 106 98 - 107 mmol/L 10/20/2016 12:[address] [facility] CO2 27 22 - 31 mmol/L 10/20/2016 12:[address] [facility] Calcium 8.7 8.5 - 10.1 mg/dL 10/20/2016 12:[address] [facility] Anion Gap 7 5 - 20 mmol/L 10/20/2016 12:[address] [facility] BUN 17 7 - 21 mg/dL 10/20/2016 12:[address] [facility] Creatinine 1.06 0.50 - 1.30 mg/dL 10/20/2016 12:[address] [facility] Alkaline Phosphatase 97 38 - 126 U/L 10/20/2016 12:[address] [facility] ALT 47 13 - 61 U/L 10/20/2016 12:[address] [facility] AST 51(H) 5 - 40 U/L 10/20/2016 12:[address] [facility] Protein Total 7.3 6.4 - 8.2 gm/dL 10/20/2016 12:[address] [facility] Albumin 3.6 3.4 - 5.0 gm/dL 10/20/2016 12:[address] [facility] Bilirubin Total 0.7 0.2 - 1.0 mg/dL 10/20/2016 12:23 PM TREE FALLER [facility] eGFR by MDRD >60 >60 mL/min/1.7 3m2 10/20/2016 12:23 PM TREE FALLER [facility] eGFR by MDRD >60 >60 mL/min/1.7 3m2 10/20/2016 12:23 PM TREE FALLER [facility] Blood BLOOD SPECIMEN / Unknown Lab Venipuncture / Unknown 10/20/2016 11:41 AM TREE FALLER 10/20/2016 11:55 AM TREE FALLER Vikas Durán MD LAB - CHEMISTRY LANRE GUILLERMO [facility] [address] [id number] from Last 3 Months or Most Recently Relevant to Health Maintenance Advance Directives * Full Code (Latest Code Status on File) Date Activated Date Inactivated Comments 10/29/2016 1:33 PM 10/30/2016 4:51 PM * Full Code Date Activated Date Inactivated Comments 03/09/2016 12:45 PM 03/10/2016 12:25 PM * Full Code Date Activated Date Inactivated Comments 08/08/2015 6:28 PM 08/10/2015 3:07 PM Care Teams Certified Nurse Practitioner Relationship Specialty Start Date End Date Jose Cruz Alexandre MD [address] [place] [address] PCP - General Internal Medicine 07/17/15
--- OUTSIDE RECORDS SUMMARY | 2024-12-22 13:22 | XMS_ITS | Clinical Summary ---
Author Organization [facility] [employer] Address [address] [place] [address] Care Team Providers Care Project Intern Name Role Phone Jose Cruz Alexandre MD Primary Care Provider [phone] Source Comments [facility] [employer],non-owned Affiliates and Associated Physician Practices is amultiple site organization consisting of ambulatory clinics and hospital sitesin [place], [place], [place] and [place]. This disclosure is being madepursuant to the Care Everywhere program and may not contain all information available regarding this patient. Last updated 18.[facility] [employer] Allergies No known active allergies Medications * [...] 81 mg by mouth once daily Active Paragon-3 Fatty Acids (OMEGA-3 FISH OIL) 1200 MG [...] disease, benign, without CHF Coronary arteriosclerosis in [place] artery 04/30 Overview (11/21/2020): Overview: CAD in [place] artery History of anticoagulant therapy 04/30/2015 Overview (11/21/2020): Overview: Chronic anticoagulation Hyperlipidemia 04/30/2015 Overview (11/21/2020): Overview: HLD (hyperlipidemia) Paroxysmal atrial fibrillation 04/30/2015 Overview (11/21/2020): Overview: PAF (paroxysmal atrial fibrillation) Presence of stent in coronary artery 04/30/2015 Overview (11/21/2020): Overview: H/O heart artery stent Knee pain 07/12/2014 Sprain rotator cuff 05/05/2005 Family History Medical History Relation Name Comments Cancer Father Diabetes Mother Relation Name Status Comments Father Alive Mother Alive Social History Tobacco Use Types Packs/Day Years [...] Comments Blood Pressure 167/89 11/21/2020 10:18 AM DISEASE MANAGEMENT NURSE Pulse 58 11/21/2020 10:18 AM DISEASE MANAGEMENT NURSE Temperature 36.6 C (97.9 F) 11/21/2020 10:18 AM DISEASE MANAGEMENT NURSE Respiratory Rate 15 10/30/2016 2:51 PM DISEASE MANAGEMENT NURSE Oxygen Saturation 98% 09/25/2019 10:10 AM DISEASE MANAGEMENT NURSE Inhaled Oxygen Concentration - - Weight 88.5 kg (195 lb) 01/30/2021 2:02 PM CDT Height 185.4 cm (6' 1 ) 01/30/2021 2:02 PM CDT Body Mass Index 25.73 01/30/2021 2:02 PM CDT Plan of Treatment Health Maintenance Due Date Last Done Comments COLOGUARD (AGES 45-75) - COL ON CA SCREENING 1955 COLON MONITORING 1955 COLONOSCOPY - COLON CA SCREENING 1955 CT COLONOGRAPHY - COLON CA SCREENING 1955 Colorectal Cancer Screening 1955 FIT - COLON CA SCREENING 1955 FLEX SIG - COLON CA SCREENING 1955 HEPATITIS C SCREENING 12/11/1973 DTAP/TDAP/TD VACCINES (1 - Tdap) 1974 PNEUMOCOCCAL VACCINE 50+ (1 of 1 - PCV) 2005 ZOSTER VACCINE (1 of 2) 2005 SCREENING FOR DIABETES 11/21/2020 6, 08/10/2015, 07/29/2015 AAA SCREENING 2020 COVID-19 VACCINE ( - 2023-2 5 season) 2024 INFLUENZA VACCINE (#1) 2024 DEPRESSION SCREENING 11/15/2024 Respiratory Syncytial Virus (RSV) Vaccine Pt: or over 60 yrs (1 - 1-dose 75+ series) 2030 HEPATITIS B VACCINE Aged Out No longe r eligible based on patient's age to complete this topic HIB VACCINE Aged Out No longer eligi ble based on patient's age to complete this topic HPV VACCINE Aged Out No longer eligi ble based on patient's age to complete this topic MENINGOCOCCAL (Group B) VACCINE Aged Out No longer eligible b ased on patient's age to complete this topic MENINGOCOCCAL VACCINE Aged Out No kayleen joel eligible based on patient's age to complete this topic Medical Devices Implanted Type Area Math Teacher Device Identifier Shelf Expiration Date Model / Serial / Lot Brien Bone Palacos R Implanted:Qty: 2 on 08/08/2015 by Vikas Durán MD at [facility] Right: Knee [employer] 11/15/2019 [id number] / / [id number] Size 6, Right Tibial Baseplate Implanted:Qty: 1 on 08/08/2015 by Vikas Durán MD at [facility] Right: Knee [employer] 04/15/2025 [id number] / / [id number] Size 7, Right Femoral Component Implanted:Qty: 1 on 08/08/2015 by Vikas Durán MD at [facility] Right: Knee [employer] 04/15/2025 [id number] / / [id number] 35mm Oval Patellar Component Implanted:Qty: 1 on 08/08/2015 by Vikas Durán MD at [facility] Right: Knee [employer] 04/15/2025 [id number] / / [id number] Right, Size 5-6, 9mm Journey Ii Cr, Xlpe, A/P 52 Mm, M/L 74 Mm Articular Insert Implanted:Qty: 1 on 08/08/2015 by Vikas Durán MD at [facility] Right: Knee [employer] 10/15/2024 [id number] / / [id number] Standard Humeral Stem Implanted:Qty: 1 on 03/09/2016 by Chance Billings MD at [facility] Right: Shoulder [employer] 08/23/2020 [id number] / [id number] / Brien Bone [place]-G Hv 40/20 Implanted:Qty: 1 on 03/09/2016 by Chance Billings MD at [facility] Right: Shoulder [employer] 08/14/2017 [id number] / / [id number] Cortiloc Pegged Glenoid Implanted:Qty: 1 on 03/09/2016 by Chance Billings MD at [facility] Right: Shoulder [employer] 10/15/2020 [id number] / [id number] / Aequalis Humeral Head Implanted:Qty: 1 on 03/09/2016 by Chance Billings MD at [facility] Right: Shoulder [employer] 04/15/2020 [id number] / [id number] / Deep Dished Articular Insert Implanted:Qty: 1 on 10/29/2016 by Vikas Durán MD at [facility] Right: Knee [employer] 01/17/2026 [id number] / / [id number] Explanted Type Area Math Teacher Device Identifier Shelf Expiration Date Model / Serial / Lot Cutting Guide Implanted:Qty: 1 Explanted:Qty: 1 on 08/08/2015 at [facility] Right: Knee [employer] 10/23/2015 [id number] / / [id number] Procedures Procedure Name Priority Date/Time Associated Diagnosis Comments COMPREHENSIVE METABOLIC PANEL Routine 10/20/2016 11:41 AM DISEASE MANAGEMENT NURSE Mechanical loosening of internal right knee prosthetic joint, initial encounter (HCC) from Last 3 Months or Most Recently Relevant to Health Maintenance Results * (ABNORMAL) COMPREHENSIVE METABOLIC PANEL (10/20/2016 11:41 AM DISEASE MANAGEMENT NURSE) Glucose 123(H) 74 - 106 mg/dL 10/20/2016 12:[address] [facility] Sodium 140 136 - 145 mmol/L 10/20/2016 12:[address] [facility] Potassium 4.8 3.5 - 5.1 mmol/L 10/20/2016 12:[address] [facility] Chloride 106 98 - 107 mmol/L 10/20/2016 12:[address] [facility] CO2 27 22 - 31 mmol/L 10/20/2016 12:[address] [facility] Calcium 8.7 8.5 - 10.1 mg/dL 10/20/2016 12:[address] [facility] Anion Gap 7 5 - 20 mmol/L 10/20/2016 12:[address] [facility] BUN 17 7 - 21 mg/dL 10/20/2016 12:[address] [facility] Creatinine 1.06 0.50 - 1.30 mg/dL 10/20/2016 12:[address] [facility] Alkaline Phosphatase 97 38 - 126 U/L 10/20/2016 12:[address] [facility] ALT 47 13 - 61 U/L 10/20/2016 12:[address] [facility] AST 51(H) 5 - 40 U/L 10/20/2016 12:[address] [facility] Protein Total 7.3 6.4 - 8.2 gm/dL 10/20/2016 12:[address] [facility] Albumin 3.6 3.4 - 5.0 gm/dL 10/20/2016 12:[address] [facility] Bilirubin Total 0.7 0.2 - 1.0 mg/dL 10/20/2016 12:[address] [facility] eGFR by MDRD >60 >60 mL/min/1.7 3m2 10/20/2016 12:[address] [facility] eGFR by MDRD >60 >60 mL/min/1.7 3m2 10/20/2016 12:[address] [facility] Blood BLOOD SPECIMEN / Unknown Lab Venipuncture / Unknown 10/20/2016 11:41 AM DISEASE MANAGEMENT NURSE 10/20/2016 11:55 AM DISEASE MANAGEMENT NURSE Vikas Durán MD LAB - CHEMISTRY LANRE GUILLERMO [facility] Organization Address City/State/ZIP Co de Phone Number [facility] [address] [phone] from Last 3 Months or Most Recently Relevant to Health Maintenance Advance Directives * Full Code (Latest Code Status on File) Date Activated Date Inactivated Comments 10/29/2016 1:33 PM 10/30/2016 4:51 PM * Full Code Date Activated Date Inactivated Comments 03/09/2016 12:45 PM 03/10/2016 12:25 PM * Full Code Date Activated Date Inactivated Comments 08/08/2015 6:28 PM 08/10/2015 3:07 PM Care Teams Project Intern Relationship Specialty Start Date End Date Jose Cruz Alexandre MD [address] [place] [address] PCP - General Internal Medicine 07/17/15
--- OUTSIDE RECORDS SUMMARY | 2024-12-22 13:22 | XMS_ITS | Patient Health Summary ---
Author Organization [facility] [employer] Address [address] [place] [address] Care Team Providers Care Business Development Associate Name Role Phone Jose Cruz Alexandre MD Primary Care Provider [phone] Note from [facility],non-owned Affiliates and Associated Physician Practices is amultiple site organization consisting of ambulatory clinics and hospital sitesin [place], [place], [place] and [place]. This disclosure is being madepursuant to the Care Everywhere program and may not contain all information available regarding this patient. Last updated 18.[facility] [employer] Allergies No known active allergies Medications * Be aware that medications may not be up to date on this document. Alwaysverify current medications with the patient. * ramipril (ALTACE) 10 MG capsule Take 20 mg by mouth once daily * metoprolol succinate XL 24hr (TOPROL XL) 100 MG tablet Take 100 mg by mouth once daily * diltiazem coated beads 24hr (CARTIA XT) 240 MG capsule Take 240 mg by mouth once daily * atorvastatin (LIPITOR) 40 MG tablet Take 40 mg by mouth once daily * naproxen sodium (ALEVE) 220 MG tablet Take 440 mg by mouth 2 times daily as needed for Pain * ALPRAZolam (XANAX) 0.25 MG tablet Take 0.25 mg by mouth 3 times daily as needed for Anxiety * aspirin EC (ECOTRIN) 81 MG tablet Take 81 mg by mouth once daily * [place]-3 Fatty Acids (OMEGA-3 FISH OIL) 1200 MG Take 3,600 mg by mouth once daily * rivaroxaban (XARELTO) 20 MG tablet Take 20 mg by mouth once daily * HYDROcodone-acetaminophen (NORCO) 5-325 MG tablet(Started 10/30/2016) Take 1 Tab by mouth every 4 hours as needed for Pain * clopidogrel (PLAVIX) 75 MG tablet(Started 05/12/2019) Take 75 mg by mouth once daily * methylPREDNISolone (MEDROL DOSEPAK) 4 MG tablet(Started 11/21/2020) Take by mouth as directed Active Problems Problem Noted Date Diagnosed Date Osteoarthritis of left knee 09/26/2019 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 11/17/2016 Acute meniscal tear of left knee 10/25/2016 Adiposity 04/30/2015 Benign hypertensive heart di sease 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 failure 04/30/2015 Coronary arteriosclerosis in [place] artery 04/30 History of anticoagulant therapy 04/30/2015 Hyperlipidemia 04/30/2015 Paroxysmal atrial fibrillation 04/30/2015 Presence of stent in coronary artery 04/30/2015 Knee pain 07/12/2014 Sprain rotator cuff 05/05/2005 [...] Comments Blood Pressure 167/89 11/21/2020 10:18 AM CONSOLE ATTENDANT Pulse 58 11/21/2020 10:18 AM CONSOLE ATTENDANT Temperature 36.6 C (97.9 F) 11/21/2020 10:18 AM CONSOLE ATTENDANT Respiratory Rate 15 10/30/2016 2:51 PM CONSOLE ATTENDANT Oxygen Saturation 98% 09/25/2019 10:10 AM CONSOLE ATTENDANT Inhaled Oxygen Concentration - - Weight 88.5 kg (195 lb) 01/30/2021 2:02 PM CDT Height 185.4 cm (6' 1 ) 01/30/2021 2:02 PM CDT Body Mass Index 25.73 01/30/2021 2:02 PM CDT Medical Devices Implanted Type Area Eyeglass Lens Grinder Device Identifier Shelf Expiration Date Model / Serial / Lot Brien Bone Palacos R Implanted:Qty: 2 on 08/08/2015 by Vikas Durán MD at [facility] Right: Knee [employer] 11/15/2019 [id number] / / [id number] Size 6, Right Tibial Baseplate Implanted:Qty: 1 on 08/08/2015 by Vikas Durán MD at [facility] Right: Knee [employer] 04/15/2025 [id number] / / [id number] Size 7, Right Femoral Component Implanted:Qty: 1 on 08/08/2015 by Vikas Durán MD at [facility] Right: Knee [employer] 04/15/2025 [id number] / / [id number] 35mm Oval Patellar Component Implanted:Qty: 1 on 08/08/2015 by Vikas Durán MD at [facility] Right: Knee [employer] 04/15/2025 [id number] / / [id number] Right, Size 5-6, 9mm Journey Ii Cr, Xlpe, A/P 52 Mm, M/L 74 Mm Articular Insert Implanted:Qty: 1 on 08/08/2015 by Vikas Durán MD at [facility] Right: Knee [employer] 10/15/2024 [id number] / / [id number] Standard Humeral Stem Implanted:Qty: 1 on 03/09/2016 by Chance Billings MD at [facility] Right: Shoulder [employer] 08/23/2020 [id number] / [id number] / Brien Bone Luxor-G Hv 40/20 Implanted:Qty: 1 on 03/09/2016 by Chance Billings MD at [facility] Right: Shoulder [employer] 08/14/2017 [id number] / / [id number] Cortiloc Pegged Glenoid Implanted:Qty: 1 on 03/09/2016 by Chance Billings MD at [facility] Right: Shoulder [employer] 10/15/2020 [id number] / [id number] / Aequalis Humeral Head Implanted:Qty: 1 on 03/09/2016 by Chance Billings MD at [facility] Right: Shoulder [employer] 04/15/2020 [id number] / [id number] / Deep Dished Articular Insert Implanted:Qty: 1 on 10/29/2016 by Vikas Durán MD at [facility] Right: Knee [employer] 01/17/2026 [id number] / / [id number] Explanted Type Area Eyeglass Lens Grinder Device Identifier Shelf Expiration Date Model / Serial / Lot Cutting Guide Implanted:Qty: 1 Explanted:Qty: 1 on 08/08/[address] [facility] Right: Knee [employer] 10/23/2015 [id number] / / [id number] Procedures * XR KNEE RIGHT 3VW(Performed 01/30/2021) Performed for Right knee pain, unspecified chronicity * MRI KNEE LEFT WO CONTRAST(Performed 09/18/2019) Performed for Primary osteoarthritis of left knee * XR BONE LENGTH SCANOGRAM(Performed 09/18/2019) Performed for Primary osteoarthritis of left knee * XR KNEE RIGHT 3VW(Performed 06/14/2019) Performed for Right knee pain, unspecified chronicity * XR KNEE BILAT 3VW(Performed 02/21/2018) Performed for Chronic pain of left knee, History of total right knee replacement * CARDIAC RHYTHM STRIP ORDER(Performed 11/03/2016) * HGB HCT PANEL(Performed 10/30/2016) * OXYGEN(Performed 10/29/2016) * ARTHROPLASTY TOTAL KNEE REVISION(Performed 10/29/2016) Performed for Prosthetic joint loosening, initial encounter ([facility]) * XR CHEST 2VW(Performed 10/20/2016) Performed for Pre-op evaluation * COMPREHENSIVE METABOLIC PANEL(Performed 10/20/2016) Performed for Mechanical loosening of internal right knee prosthetic joint, initial encounter ([facility]) * CBC W AUTO DIFFERENTIAL(Performed 10/20/2016) Performed for Mechanical loosening of internal right knee prosthetic joint, initial encounter ([facility]) * CULTURE MSSA/MRSA(Performed 10/20/2016) Performed for Mechanical loosening of internal right knee prosthetic joint, initial encounter ([facility]) * EKG 12-LEAD(Performed 10/20/2016) Performed for Mechanical loosening of internal right knee prosthetic joint, initial encounter ([facility]) * IMAGING/RADIOLOGY/XRAY RESULTS ORDER(Performed 03/12/2016) * CARDIAC RHYTHM STRIP ORDER(Performed 03/11/2016) * LAB RESULTS ORDER(Performed 03/11/2016) * XR SHOULDER RIGHT 1VW(Performed 03/09/2016) Performed for Primary osteoarthritis of right shoulder * OXYGEN(Performed 03/09/2016) * PATHOLOGY TISSUE EXAM (STL)(Performed 03/09/2016) Performed for Primary osteoarthritis of right shoulder, Biceps tendonitis, right * ARTHROPLASTY TOTAL SHOULDER(Performed 03/09/2016) Performed for Primary osteoarthritis of right shoulder, Biceps tendonitis, right * PERIPHERAL BLOCK(Performed 03/09/2016) * APHERESIS/TRANSFUSION ORDER(Performed 03/03/2016) * BLOOD TYPE VERIFICATION(Performed 03/02/2016) Performed for Pre-op testing * TYPE + SCREEN PANEL(Performed 03/02/2016) Performed for Pre-op testing * IMAGING/RADIOLOGY/XRAY RESULTS ORDER(Performed 08/12/2015) * CARDIAC RHYTHM STRIP ORDER(Performed 08/12/2015) * HGB HCT PANEL(Performed 08/10/2015) * BASIC METABOLIC PANEL (CALCIUM TOTAL)(Performed 08/10/2015) * HGB HCT PANEL(Performed 08/09/2015) * OT EVAL AND TREAT(Performed 08/08/2015) * PATHOLOGY TISSUE EXAM (STL)(Performed 08/08/2015) Performed for Osteoarthrosis, unspecified whether generalized or localized, lower leg * PERIPHERAL BLOCK(Performed 08/08/2015) * ARTHROPLASTY TOTAL KNEE(Performed 08/08/2015) Performed for Osteoarthrosis, unspecified whether generalized or localized, lower leg * XR CHEST 2VW(Performed 07/29/2015) Performed for Pre-op exam * COMPREHENSIVE METABOLIC PANEL(Performed 07/29/2015) Performed for Preoperative examination, unspecified * CBC W AUTO DIFFERENTIAL(Performed 07/29/2015) Performed for Preoperative examination, unspecified * CULTURE MSSA/MRSA(Performed 07/29/2015) Performed for Preoperative examination, unspecified * EKG 12-LEAD(Performed 07/29/2015) Performed for Preoperative examination, unspecified * MRI KNEE RIGHT WO CONTRAST(Performed 07/17/2015) Performed for Knee pain, right * XR BONE LENGTH SCANOGRAM(Performed 07/17/2015) Performed for Osteoarthrosis, unspecified whether generalized or localized, lower leg Results * XR KNEE RIGHT 3VW (01/30/2021 2:11 PM CDT) Only the most recent of2 resultswithin the time period is included. Anatomical Region Laterality Modality Lower Extremity Computed Radiogr aphy Narrative 01/30/2021 2:11 PM CDT Pilar Garcia RT(R) 02/07/2021 3:09 PM See progress notes for results aTyo Pereira MD DIAGNOSTIC IMAGING O RDERABLES * MRI KNEE LEFT WO CONTRAST (09/18/2019 7:08 PM CONSOLE ATTENDANT) Anatomical Region Laterality Modality Lower Extremity Magnetic Resonan ce 09/19/2019 8:07 AM CONSOLE ATTENDANT Impressions 09/19/2019 8:12 AM CONSOLE ATTENDANT Patellofemoral more evident than medial femoral tibial osteoarthrosis. Reading Radiologist: Denton Saab MD on 09/19/2019 at 8:12 AM Narrative 09/19/2019 8:12 AM CONSOLE ATTENDANT MRI Left Knee Without Contrast INDICATION: Knee osteoarthrosis. Left knee pain TECHNIQUE: Multisequence, multiplanar MRI sequences of the knee without contrast FINDINGS: There is only trace amount of suprapatellar joint fluid. There is patellofemoral arthrosis with subchondral cystic changes off of the lateral patellar facet with cartilage thinning and irregularity to the patellar apex as well as medial patellar facet. Trochlear groove chondromalacia. There is cephalad extension of a popliteal recess cyst laterally. This multilobulated cyst measures about 2.3 x 1.4 x 1.8 cm. The lateral meniscus is intact. The medial meniscus is intact. The femoral condylar surface cartilage shows some mild chondromalacia to the central aspect of the weightbearing surface of the medial femoral condyle with a small amount of subchondral pitting edema. The medial collateral ligament is normal. The fibular collateral ligament is normal. The popliteus muscle/tendon are normal. Both the ACL and PCL are intact. The quadriceps and patellar tendons are normal. Procedure Note Denton Saab MD - 09/19/2019 MRI Left Knee Without Contrast INDICATION: Knee osteoarthrosis. Left knee pain TECHNIQUE: Multisequence, multiplanar MRI sequences of the knee without contrast FINDINGS: There is only trace amount of suprapatellar joint fluid. There is patellofemoral arthrosis with subchondral cystic changes off of the lateral patellar facet with cartilage thinning and irregularity to the patellar apex as well as medial patellar facet. Trochlear groove chondromalacia. There is cephalad extension of a popliteal recess cyst laterally. This multilobulated cyst measures about 2.3 x 1.4 x 1.8 cm. The lateral meniscus is intact. The medial meniscus is intact. The femoral condylar surface cartilage shows some mild chondromalacia to the central aspect of the weightbearing surface of the medial femoral condyle with a small amount of subchondral pitting edema. The medial collateral ligament is normal. The fibular collateral ligament is normal. The popliteus muscle/tendon are normal. Both the ACL and PCL are intact. The quadriceps and patellar tendons are normal. IMPRESSION Patellofemoral more evident than medial femoral tibial osteoarthrosis. Reading Radiologist: Denton Saab MD on 09/19/2019 at 8:12 AM Vikas Durán MD MR ORDERABLES * XR BONE LENGTH SCANOGRAM (09/18/2019 5:58 PM CONSOLE ATTENDANT) Only the most recent of2 resultswithin the time period is included. Anatomical Region Laterality Modality Lower Extremity, Pelvis Radiogra [facility] 09/18/2019 6:13 PM CONSOLE ATTENDANT Impressions 09/19/2019 4:19 PM CONSOLE ATTENDANT Right leg approximately 1.6 cm longer than the left. Reading Radiologist: Jaswant Chin MD on 09/19/2019 at 4:19 PM Narrative 09/19/2019 4:19 PM CONSOLE ATTENDANT Examination: Radiographic bone length scanogram. HISTORY: Left knee osteoarthritis. Length discrepancy. FINDINGS: There is downward tilt of the left hemipelvis. The right leg from the superior margin of the femoral head to the tibial plafond and 97.9 cm. The left leg using similar reference points measures 96.3 cm. Procedure Note Jaswant Chin MD - 09/19/2019 Examination: Radiographic bone length scanogram. HISTORY: Left knee osteoarthritis. Length discrepancy. FINDINGS: There is downward tilt of the left hemipelvis. The right leg from the superior margin of the femoral head to the tibial plafond and 97.9 cm. The left leg using similar reference points measures 96.3 cm. IMPRESSION Right leg approximately 1.6 cm longer than the left. Reading Radiologist: Jaswant Chin MD on 09/19/2019 at 4:19 PM Vikas Durán MD DIAGNOSTIC IMAGING O RDERABLES * XR KNEE BILAT 3VW (02/21/2018 9:47 AM CDT) Anatomical Region Laterality Modality Lower Extremity Radiographic Karyna ging Narrative 02/21/2018 12:19 PM CDT Cathryn Ramos 02/21/2018 12:19 PM SEE PROGRESS NOTES FOR RESULTS Vikas Durán MD DIAGNOSTIC IMAGING O RDERABLES * CARDIAC RHYTHM STRIP ORDER (11/03/2016 3:05 AM CONSOLE ATTENDANT) Only the most recent of3 resultswithin the time period is included. Narrative 11/03/2016 3:05 AM CONSOLE ATTENDANT Ordered by an unspecified provider. Scanned Document CARDIAC SERVICES ORD ERABLES * HGB HCT PANEL (10/30/2016 5:50 AM CONSOLE ATTENDANT) Only the most recent of3 resultswithin the time period is included. Hemoglobin 13.3 12.0 - 17.6 gm/dL 10/30/2016 6:02 AM CONSOLE ATTENDANT [facility] Hematocrit 38.1 35.2 - 51.7 % 10/30/2016 6:02 AM CONSOLE ATTENDANT [facility] Blood BLOOD SPECIMEN / Unknown Lab Venipuncture / Unknown 10/30/2016 5:50 AM CONSOLE ATTENDANT 10/30/2016 6:00 AM CONSOLE ATTENDANT Vikas Durán MD LAB - HEMATOLOGY ORD ERABLES [facility] [address] [address] * XR CHEST PA AND LATERAL (10/20/2016 12:32 PM CONSOLE ATTENDANT) Only the most recent of2 resultswithin the time period is included. Anatomical Region Laterality Modality Chest Radiographic Karyna ging 10/20/2016 12:5 2 PM CONSOLE ATTENDANT Impressions 10/20/2016 12:53 PM CONSOLE ATTENDANT No acute cardiopulmonary process. Narrative 10/20/2016 12:53 PM CONSOLE ATTENDANT Chest Two Views History: Encounter for other preprocedural examination Comparison: 2 views of the chest July 29, 2015 Findings: The lungs are clear. No pneumothorax or pleural effusion. The cardiomediastinal silhouette is within normal limits. There is a right shoulder arthroplasty. Procedure Note Kellie Mccray MD - 10/20/2016 Chest Two Views History: Encounter for other preprocedural examination Comparison: 2 views of the chest July 29, 2015 Findings: The lungs are clear. No pneumothorax or pleural effusion. The cardiomediastinal silhouette is within normal limits. There is a right shoulder arthroplasty. IMPRESSION No acute cardiopulmonary process. Jose Cruz Alexandre MD DIAGNOSTIC IMAGING O RDRUTHIE * CULTURE MSSA/MRSA (10/20/2016 11:41 AM CONSOLE ATTENDANT) Only the most recent of2 resultswithin the time period is included. Pathologist [facility] Culture Negative for MRSA/MSSA JUS 10/22/2016 8:21 AM CONSOLE ATTENDANT [facility] MICROBIOLOG[facility] Microbiology SPECIMEN FROM NASAL FOSSAE / Unknown Collection / Unknown 10/20/2016 11:41 AM CONSOLE ATTENDANT 10/20/2016 11:53 AM CONSOLE ATTENDANT Vikas Durán MD LAB - MICROBIOLOGY O RDERABLES [facility] [address] [place], [place] [address], [facility] [phone] * (ABNORMAL) CBC W AUTO DIFFERENTIAL (10/20/2016 11:41 AM CONSOLE ATTENDANT) Only the most recent of2 resultswithin the time period is included. WBC 5.1 4.4 - 10.7 x10E9/L 10/20/2016 11:59 AM CONSOLE ATTENDANT [facility] WBC Corrected x10E9/L 10/20/2016 11:59 AM CONSOLE ATTENDANT [facility] RBC 4.80 3.80 - 5.40 x10E12/L 10/20/2016 11:59 AM [facility] Hemoglobin 15.2 12.0 - 17.6 gm/dL 10/20/2016 11:59 AM [facility] Hematocrit 43.6 35.2 - 51.7 % 10/20/2016 11:59 AM [facility] MCV 90.8 80.7 - 98.3 fl 10/20/2016 11:59 AM [facility] MCH 31.7 26.7 - 34.0 pg 10/20/2016 11:59 AM [facility] MCHC 34.9 30.8 - 35.9 gm/dL 10/20/2016 11:59 AM [facility] Platelet Count 227 153 - 416 x10E9/L 10/20/2016 11:59 AM [facility] RDW-CV 12.3 12.1 - 14.9 % 10/20/2016 11:59 AM [facility] MPV 11.0 9.4 - 12.9 fl 10/20/2016 11:59 AM [facility] Neutrophils % 52.5 44.0 - 73.0 % 10/20/2016 11:59 AM [facility] Lymphocytes % 24.5 20.0 - 43.0 % 10/20/2016 11:59 AM [facility] Monocytes % 10.1 5.0 - 13.0 % 10/20/2016 11:59 AM [facility] Eosinophils % 11.5(H) 0.0 - 6.0 % 10/20/2016 11:59 AM [facility] Basophils % 1.2 0.0 - 2.0 % 10/20/2016 11:59 AM [facility] Immature Granulocytes 0.2 0 - 1 % 10/20/2016 11:59 AM [facility] Neutrophil Absolute 2.66 2.01 - 7.14 x10E9/L 10/20/2016 11:59 AM [facility] Lymphocytes Absolute 1.24 1.07 - 3.94 x10E9/L 10/20/2016 11:59 AM [facility] Monocytes Absolute 0.51 0.26 - 1.07 x10E9/L 10/20/2016 11:59 AM [facility] Eosinophils Absolute 0.58(H) 0 - 0.47 x10E9/L 10/20/2016 11:59 AM [facility] Basophils Absolute 0.06 0 - 0.08 x10E9/L 10/20/2016 11:59 AM [facility] Immature Granulocytes Absolute 0.01 0.00 - 0.06 x10E9/L 10/20/2016 11:59 AM [facility] nRBC Auto 0 /100 WBC 10/20/2016 11:59 AM [facility] Blood BLOOD SPECIMEN / Unknown Lab Venipuncture / Unknown 10/20/2016 11:41 AM CONSOLE ATTENDANT 10/20/2016 11:55 AM [facility] Vikas Durán MD LAB - HEMATOLOGY ORD ERABLES [facility] [address] [address] * (ABNORMAL) COMPREHENSIVE METABOLIC PANEL (10/20/2016 11:41 AM [facility]) Only the most recent of2 resultswithin the time period is included. Glucose 123(H) 74 - 106 mg/dL 10/20/2016 12:23 PM [facility] Sodium 140 136 - 145 mmol/L 10/20/2016 12:23 PM [facility] Potassium 4.8 3.5 - 5.1 mmol/L 10/20/2016 12:23 PM [facility] Chloride 106 98 - 107 mmol/L 10/20/2016 12:23 PM [facility] CO2 27 22 - 31 mmol/L 10/20/2016 12:23 PM [facility] Calcium 8.7 8.5 - 10.1 mg/dL 10/20/2016 12:23 PM [facility] Anion Gap 7 5 - 20 mmol/L 10/20/2016 12:23 PM [facility] BUN 17 7 - 21 mg/dL 10/20/2016 12:23 PM [facility] Creatinine 1.06 0.50 - 1.30 mg/dL 10/20/2016 12:23 PM [facility] Alkaline Phosphatase 97 38 - 126 U/L 10/20/2016 12:23 PM [facility] ALT 47 13 - 61 U/L 10/20/2016 12:23 PM [facility] AST 51(H) 5 - 40 U/L 10/20/2016 12:23 PM [facility] Protein Total 7.3 6.4 - 8.2 gm/dL 10/20/2016 12:23 PM [facility] Albumin 3.6 3.4 - 5.0 gm/dL 10/20/2016 12:23 PM [facility] Bilirubin Total 0.7 0.2 - 1.0 mg/dL 10/20/2016 12:23 PM [facility] eGFR by MDRD >60 >60 mL/min/1.7 3m2 10/20/2016 12:23 PM [facility] eGFR by MDRD >60 >60 mL/min/1.7 3m2 10/20/2016 12:23 PM [facility] Blood BLOOD SPECIMEN / Unknown Lab Venipuncture / Unknown 10/20/2016 11:41 AM CONSOLE ATTENDANT 10/20/2016 11:55 AM CONSOLE ATTENDANT Vikas Durán MD LAB - CHEMISTRY LANRE GUILLERMO [facility] Organization Address City/State/ZIP Co de Phone Number [facility] [address] [address] * EKG 12-LEAD (10/20/2016 11:31 AM CONSOLE ATTENDANT) Only the most recent of2 resultswithin the time period is included. Ventricular Rate 55 BPM [facility] Atrial Rate 55 BPM [facility] P-R Interval 174 ms [facility] QRS Duration ms 92 ms [facility] Q-T Interval ms 416 ms [facility] QTC Calculation (Bezet) 397 ms [facility] Calculated P [place] 35 degrees [facility] Calculated R [place] -24 degrees [facility] Calculated T [place] 3 degrees [facility] Interpretation EKG Sinus bradycardia Minimal voltage criteria for LVH, may be normal variant Borderline ECG When compared with ECG of 29-JUL-2015 11:08, No significant change was found Confirmed by Urbano Polk ([id number]) on 10/21/2016 8:02:17 AM [facility] 10/20/2016 11:3 1 AM CONSOLE ATTENDANT 10/21/2016 8:02 AM CONSOLE ATTENDANT Vikas Durán MD ECG ORDERABLES [facility] * IMAGING/RADIOLOGY/XRAY RESULTS ORDER (03/12/2016 5:16 AM CDT) Only the most recent of2 resultswithin the time period is included. Anatomical Region Laterality Modality Other Narrative 03/12/2016 5:16 AM CDT Ordered by an unspecified provider. Scanned Document IMAGING * LAB RESULTS ORDER (03/11/2016 9:54 PM CDT) Narrative 03/11/2016 9:54 PM CDT Ordered by an unspecified provider. Scanned Document LAB - THERAPEUTIC DR OLIVIER MONITORING ORDERABLES * XR SHOULDER 1 VW RIGHT (03/09/2016 9:45 AM CDT) Anatomical Region Laterality Modality Upper Extremity Radiographic Karyna ging 03/09/2016 10:1 0 AM CDT Narrative 03/09/2016 10:11 AM CDT Portable single view right shoulder Indication: Right shoulder pain Findings: A total shoulder arthroplasty has been recently placed. There are no acute appearing postsurgical complications. A surgical drain is noted. Procedure Note Jay Cruz MD - 03/09/2016 Portable single view right shoulder Indication: Right shoulder pain Findings: A total shoulder arthroplasty has been recently placed. There are no acute appearing postsurgical complications. A surgical drain is noted. Chance Billings MD DIAGNOSTIC IMAGI NG ORDERABLES * GROSS + MICRO EXAM (STL) (03/09/2016 7:43 AM CDT) Only the most recent of2 resultswithin the time period is included. Case Report Surgical Pathology Report Case: [id number] Authorizing Provider: Chance Billings MD Collected: 03/09/2016 07:43 AM Ordering Location: [facility] Received: 03/09/2016 11:52 AM Pathologist: Pilar Aranda MD Specimen: Bone, bone and tissue right shoulder 03/12/2016 1:27 PM CDT [facility] Final Diagnosis Bone and tissue, right shoulder, excision: - Bone with features of degenerative joint disease and small well-formed, non-caseating granulomas - AFB and GMS stains engative - Synovium with fibrosis KL/alj 03/12/2016 1:27 PM T [facility] LABORATORY Gross Description Received in formalin in a container labeled Denton Emerson, bone and tissue right shoulder. The container holds a 6.2 x 5.8 x 2.5 cm slightly dome shaped bone fragment with smooth margin of resection. The articular surface is roughened and displays focal areas of eburnation. Section shows a yellow-viera cut surface. Also received in the container are multiple fragments of bone and soft tissue measuring 7 x 4 x 1.5 cm in aggregate. Damper Fitter sections are submitted as follows: A1-bone following decalcification; A2-soft tissue. DYT/alj 03/12/2016 1:27 PM T [facility] Microscopic Description Histologic sections show bone with an irregular articular surface and areas of eburnation consistent with degenerative joint disease. There are a few small, well-formed, non-necrotizing granulomas present between the bone trabeculae. Stains for acid fast (AFB) and fungal (GMS) organisms are negative. The accompanying synovium shows fibrosis. There is no evidence of malignancy. KL/alj 03/12/2016 1:27 PM T [facility] Pathology/Cytolo gy BONE SPECIMEN / Unknown 03/09/2016 7:43 AM CDT 03/09/2016 11:52 AM CDT Chance Billings MD LAB - PATHOLOGY/ CYTOLOGY ORDERABLES [facility] [address] [place] [address] * PERIPHERAL BLOCK (03/09/2016 6:36 AM CDT) Narrative Chance Diaz MD - 03/09/2016 6:36 AM CDT Chance Diaz MD 03/09/2016 6:36 AM Peripheral Block Patient Location: pre-op Pre Procedure Indication: at surgeon's request and post-operative analgesia Preanesthetic Checklist: patient identified, IV checked, site marked, risks and benefits discussed, surgical consent verified, monitors and equipment checked, pre-op evaluation done, timeout performed, informed consent obtained and questions answered / anesthesia plan accepted Monitors: Pulse Ox Patient Condition: sedated, meaningful contact maintained Patient Position: supine Procedure Laterality: right Block Performed: interscalene Prep: Chloraprep Sterile Field: sterile gloves and sterile field established Skin Numbed with: lidocaine 1% Needle Type: nerve stimulator Needle Gauge: 21 Needle Length: 50 mm Ultrasound guided Technique: in plane Visualization: target ID'd, good spread of local around target and Ultrasound image in chart Block Agent: ropivacaine 0.5% 40 mL Other Additives: ANE Block Peripheral Clonidine Additive: dexmedetomidine. 100 mcg Injection was made incrementally with constant monitoring and aspirations every 5 mL's. Block Start Time: 03/09/2016 6:26 AM Block End Time: 03/09/2016 6:32 AM Block Performed by: Grant Diaz MD Chance Diaz MD GENERAL ANESTHES IA ORDERABLES * APHERESIS/TRANSFUSION ORDER (03/03/2016 9:09 PM CDT) Narrative 03/03/2016 9:09 PM CDT Ordered by an unspecified provider. Scanned Document NURSING - VITAL SIGN S AND ASSESSMENT * BLOOD TYPE VERIFICATION (03/02/2016 8:47 AM CDT) ABO A 03/02/2016 9:36 AM CDT [facility] Rh Type Positive 03/02/2016 9:36 AM CDT [facility] Blood Bank BLOOD SPECIMEN / Unknown Lab Venipuncture / Unknown 03/02/2016 8:47 AM CDT 03/02/2016 8:53 AM CDT Chance Billings MD LAB - BLOOD BANK ORDERABLES [facility] [place] [address], [facility] [phone] * TYPE + SCREEN PANEL (03/02/2016 8:28 AM CDT) ABO A 03/02/2016 9:36 AM CDT [facility] Rh Type Positive 03/02/2016 9:36 AM T [facility] Comment:History check perfor med. Retype required. Antibody Screen Negative 03/02/2016 9:36 AM T [facility] Blood Bank BLOOD SPECIMEN / Unknown Lab Venipuncture / Unknown 03/02/2016 8:28 AM CDT 03/02/2016 8:42 AM CDT Chance Billings MD LAB - BLOOD BANK ORDERABLES [facility] [address] [phone] * (ABNORMAL) BASIC METABOLIC PANEL (CALCIUM TOTAL) (08/10/2015 5:41 AM CDT) Glucose 174(H) 74 - 106 mg/dL 08/10/2015 6:17 AM [facility] Sodium 133(L) 136 - 145 mmol/L 08/10/2015 6:17 AM [facility] Potassium 3.8 3.5 - 5.1 mmol/L 08/10/2015 6:17 AM [facility] Chloride 102 98 - 107 mmol/L 08/10/2015 6:17 AM [facility] CO2 23 22 - 31 mmol/L 08/10/2015 6:17 AM [facility] Calcium 8.2(L) 8.5 - 10.1 mg/dL 08/10/2015 6:17 AM [facility] Anion Gap 8 5 - 20 mmol/L 08/10/2015 6:17 AM [facility] BUN 30(H) 7 - 21 mg/dL 08/10/2015 6:17 AM [facility] Creatinine 1.53(H) 0.50 - 1.30 mg/dL 08/10/2015 6:17 AM [facility] eGFR by MDRD 47(L) >60 mL/min/1.7 3m2 08/10/2015 6:17 AM [facility] eGFR by MDRD 57(L) >60 mL/min/1.7 3m2 08/10/2015 6:17 AM CDT [facility] Blood BLOOD SPECIMEN / Unknown Lab Venipuncture / Unknown 08/10/2015 5:41 AM CDT 08/10/2015 6:00 AM CDT Vikas Durán MD LAB - CHEMISTRY LANRE [facility]LLER[facility] Organization Address City/State/ZIP Co de Phone Number [facility] [address] [address] * PERIPHERAL BLCOK (08/08/2015 1:48 PM CDT) Narrative Keron Woods MD - 08/08/2015 1:48 PM CDT Keron Pratt MD 08/08/2015 1:48 PM Peripheral Block Patient Location: pre-op Pre Procedure Indication: at surgeon's request and post-operative analgesia Preanesthetic Checklist: patient identified, IV checked, site marked, risks and benefits discussed, surgical consent verified, monitors and equipment checked, pre-op evaluation done, timeout performed, informed consent obtained and questions answered / anesthesia plan accepted Monitors: Pulse Ox Patient Condition: sedated, meaningful contact maintained Patient Position: supine Procedure Laterality: right Block Performed: adductor canal Prep: Chloraprep Sterile Field: sterile field established and sterile gloves Skin Numbed with: lidocaine 1% Needle Type: echogenic Needle Gauge: 21 Needle Length: 100 mm Ultrasound guided Technique: in plane Visualization: target ID'd, good spread of local around target and Ultrasound image in chart Block Agent: ropivacaine 0.2% 30 mL Other Additives: clonidine 100 mcg Events blood not aspirated injection not painful no injection resistance no paresthesia no other events Block Performed by: Jammie Pratt MD This block was performed for post operative analgesia at surgeon's request, after timeout and site marking. Please see intraop navigator for medications administered. Sterile technique followed. VSS throughout. Keron Pratt MD GENERAL AN ESTHESIA ORDERABLES * MRI KNEE RIGHT WO CONT (07/17/2015 3:35 PM CDT) Anatomical Region Laterality Modality Lower Extremity Magnetic Resonan ce 07/17/2015 5:59 PM CDT Narrative 07/17/2015 6:01 PM CDT MRI right knee Indication for examination: Right knee pain and reduced range of motion. Internal derangement. Noncontrast T1 and T2-weighted images of the right knee are obtained, per presurgical protocol. There are changes of previous anterior cruciate ligament reconstruction. There is loss of definition of the reconstructed anterior cruciate ligament representing degeneration and tear. Posterior cruciate ligament is visualized and is grossly intact. Medial and lateral collateral ligament are intact. There is moderate degenerative arthritic change in the medial and lateral compartment. There is there is a small joint effusion. There is degenerative tear mid to posterior horn medial meniscus with degenerative change at the posterior root ligament. There also is blunting of the free edge of the midbody of the lateral meniscus. There is advanced degenerative change patellofemoral compartment. Conclusion: Internal derangement as described. Loss of definition of the previously reconstructed anterior cruciate ligament. Procedure Note Jaswant Bustillos MD - 07/17/2015 MRI right knee Indication for examination: Right knee pain and reduced range of motion. Internal derangement. Noncontrast T1 and T2-weighted images of the right knee are obtained, per presurgical protocol. There are changes of previous anterior cruciate ligament reconstruction. There is loss of definition of the reconstructed anterior cruciate ligament representing degeneration and tear. Posterior cruciate ligament is visualized and is grossly intact. Medial and lateral collateral ligament are intact. There is moderate degenerative arthritic change in the medial and lateral compartment. There is there is a small joint effusion. There is degenerative tear mid to posterior horn medial meniscus with degenerative change at the posterior root ligament. There also is blunting of the free edge of the midbody of the lateral meniscus. There is advanced degenerative change patellofemoral compartment. Conclusion: Internal derangement as described. Loss of definition of the previously reconstructed anterior cruciate ligament. Vikas Durán MD MR ORDERABLES Care Teams Business Development Associate Relationship Specialty Start Date End Date Jose Cruz Alexandre MD [address] [place] [id number] PCP - General Internal Medicine 07/17/15
--- OUTSIDE RECORDS SUMMARY | 2024-12-22 13:23 | XMS_ITS | Data Portability ---
Author Organization [facility], [facility] Address [address] [place] [id number] Care Team Providers Care Tax Collector Name Role Phone DOUGIE VARGAS Primary Care Provider [phone] NETTA KESSLER Referring Provider [phone] Assessment Encounter Date Assessment Date Assessment LastModified by Organization Details LastModified Time 03/01/2018 03/01/2018 Patient is a good candidate for BMAC/fat autograft plus 1 cc Corecyte to the left shoulder. Patient given information regarding same. May follow-up if he wishes to pursue. Return for worsening symptoms. Greater than 45 minutes was spent with the patient in direct evaluation and subsequent care planning. Not available 03/01/2018 12:38:25 Plan of Treatment Reminders Order Date Submit Date Provider Last Modified By Organization Details Last Modified Time Details Appointments None recorded. Lab None recorded. Referral None recorded. Procedures None recorded. Surgeries None recorded. Imaging None recorded. Medication Orders tramadol 50 mg tablet 2017 018 [email or web address] [facility] #[id number], [address] [facility], [place], [place], [id number], 8 11:37:13 Patient TargetsNo targets recorded. Patient Instructions Encounter Date Encounter Id Patient Instructions Last Modified By Organization Details Last Modified Time 03/01/2018 [id number] shoulder pain: care instructions Not available 03/02/2018 13:22:49 03/30/2018 [id number] shoulder pain: care instructions Not available 03/30/2018 12:53:56 06/22/2018 [id number] shoulder pain: care instructions [email or web address] Not available 06/22/2018 11:37:13 Reason for Referral None Reported. Results Created Date Observation Date Name Description Value Unit Range Abnormal Flag Note LastModifiedBy Organization Detail LastModifiedTime 03/03/20 18 03/09/2018 heavy metal s scree n, blood arsenic, blood 26 mcg/L < 23 high Whole Blood Gerry ic Level > 100 mcg/L is indic ative of acute /lead accountant rosette expos ure. Urine is usual ly the best speci men for the kurt sis of gerry ic in body fluid s. Blood level s tend to be low even when urine maegan ntrat ions are high. Not Available [facility] [address], [place], [address], 03/09/2018 21:10:08 03/03/20 18 03/09/2018 heavy metal s scree n, blood mercury, blood 16 mcg/L < 11 high Not Available [facility] [address] [address] [place], [address], 03/09/2018 21:10:08 03/03/20 18 03/09/2018 heavy metal s scree n, blood lead, blood 1 mcg/d L < 5 Lead: to 6 years : < 5 mcg/d L > 6 years : < 5 mcg/d L Blood lead level s in the range of 5-9 mcg/d L have been assoc iated with adver se healt h effec ts in child tanesha aged 6 years and young er. Patie nt manag ement varie s by age and [facility] Blood Lead Level range . Refer to the CDC chagoi justine camejo Lead Publi catio n/ Case Manag ement for recom maritza d inter venti ons. Not Available [facility] [address], [place], [address], 03/09/2018 21:10:08 03/03/20 18 03/09/2018 heavy metal s scree n, blood lead(B) collection sample VENOUS Not Available [facility] [address] [address] [place], [address], 03/09/2018 21:10:08 03/03/20 18 03/09/2018 igf-1 (insu yelena-l nydia growt h facto r), serum igf 1, lc/MS 159 NG/mL 41-279 Not Available [facility] [address] [address] [place], [address], 03/09/2018 21:10:09 03/03/20 18 03/09/2018 igf-1 (insu yelena-l nydia growt h facto r), serum Z score (male) 0.5 SD -2.0 - +2.0 This test was devel lexi and its kurt tical perfo rmanc e constantine cteri stics have been deter mined by [facility] Jeremy feliz Inst[facility] june Manuel cool . It has not been clear ed or appro jeancarlos by FDA. This assay has been valid ated pursu ant to the CLIA regul ation s and is used for clini shasha purpo ses. Not Available [facility] [address], [place], [address], 03/09/2018 21:10:09 03/03/20 18 03/09/2018 vitam in D, 25-hy droxy , total , serum vitamin D,25-oh,tota l,ia 34 NG/mL 30-100 normal Vitam in D Statu s 25-OH Vitam in D: Defic iency : <20 ng/mL Insuf ficie ncy: 20 - 29 ng/mL Optim al: > or = 30 ng/mL For 25-OH Vitam in D testi ng on patie nts on D2-arnett pplem entat ion and patie nts for whom quant itati on of D2 and D3 fract ions is requi red, the [facility] eD(TM ) 25-OH VIT D, (D2,D 3), LC/MS /MS is recom maritza d: order code 64552 (elliott ents >2yrs ). For more infor emily montero on this test, go to: http: //lucy stevenia gnost ics.c om/fa q/FAQ 163 (This link is being provi ded for infor emily nal/e ducat ional purpo ses only. ) Not Available [facility] [address] [address] [place], [address], 03/09/2018 21:10:09 03/03/20 18 03/09/2018 testo stero ne, free + total , serum testosterone , total, lc/MS/MS 314 NG/dL 250-11 00 Males : Men with clini jolly signi fican t hypog onada l sympt oms and testo stero ne value s repea tedly in the range of the 200-3 00 ng/dL or less, may benef it from testo stero ne treat ment after adequ ate risk and benef its couns eling . Not Available [facility] [address], [place], [address], 03/09/2018 21:10:10 03/03/20 18 03/09/2018 testo stero ne, free + total , serum free testosterone 37.1 pg/mL 35.0-1 55.0 This test was devmolina elliott and its kurt tical perfo rmanc e constantine cteri stics have been deter mined by [facility] Jeremy Shaferi elicia Prado cia. It has not been clear ed or appro jeancarlos by the US Food and Drug Admin istra tion. This assay has been valid ated pursu ant to the CLIA regul ation s and is used for clini shasha purpo ses. Not Available [facility] [address] [place], [address], 03/09/2018 21:10:10 Result Notes None recorded. Procedures Surgical History Date Name Laterality Status Provider Name and Address Organization Details Recorded Time 8 Generic Procedure completed LEAH URIOSTEGUI PA-C [address], [place], [address], [employer] [facility], [facility] 03/02/2018 13:22:38 Knee Surgery completed Jena Rangel [employer] [facility], [facility] 03/01/2018 12:04:16 Shoulder Surgery completed Jena Rangel [facility], [facility] 03/01/2018 12:04:28 Imaging Results None recorded. Procedure Notes None recorded. Medical Equipment None Reported. Allergies No known drug allergies Medications Name Sig Start Date Stop Date Status Note LastModified by Organization Details LastModified Time atorvastatin 40 mg tablet active Not Available Not Available Not Available diltiazem CD 240 mg capsule,extend ed release 24 hr active Not Available Not Available Not Available metoprolol succinate ER 100 mg tablet,extende d release 24 hr active Not Available Not Available Not Available tramadol 50 mg tablet Take 1 tablet every 6 hours by oral route. 2017 active Not Available Not Available Not Avai lable alprazolam 0.25 mg tablet active Not Available Not Availab le Not Available ramipril 10 mg capsule Take 1 capsule every day by oral route. active Not Available Not Available No t Available Norvasc active Not Available Not Avail able Not Available Xarelto active Not Available Not Avail able Not Available Xarelto 20 mg tablet active Not Available Not Available Not Available Vitals Date Recorded Body height Body mass index (BMI) Body weight Heart rate Systolic blood pressure Diastolic blood pressure Provider Name and Address Organization Details Last Updated DateTime 8 185.42 cm 27.7 kg/m2 43729.4 g 71 /min 176 mm[Hg] 98 mm[Hg] Jena Rangel [facility] [employer], [facility] 8 11:53:05 Date Recorded Body height Body mass index (BMI) Body weight Heart rate Systolic blood pressure Diastolic blood pressure Provider Name and Address Organization Details Last Updated DateTime 8 185.42 cm 26.4 kg/m2 66488.4 7 g 70 /min 177 mm[Hg] 84 mm[Hg] Debra Zee [facility], [facility] 8 10:58:47 Date Recorded Body height Body mass index (BMI) Body weight Heart rate Systolic blood pressure Diastolic blood pressure Provider Name and Address Organization Details Last Updated DateTime 8 185.42 cm 25.1 kg/m2 23783.5 5 g 73 /min 152 mm[Hg] 87 mm[Hg] Sandra Mercado [address],[facility] E [facility], [facility] [place], [address] , [employer], [employer] 8 11:36:27 Social History Question Answer Notes LastModified by Organizat ion Details LastModified Time Tobacco Smoking Status Never Smoker KRISTOPHER Acosta - [facility], [facility] 03/01/2018 12:02:46 What Is Your Level Of Alcohol Consumption? Occasional [email or web address] Information not available 03/01/2018 What Is Your Occupation? Retired Information not available 03/01/2018 Marital Status [email or web address] Informatio n not available 03/01/2018 What Was The Date Of Your Most Recent Tobacco Screening? 06/22/2018 Information n ot available 06/08/2019 Sex: Unknown Functional Status None recorded. Mental Status None recorded. Family History Relationship Description Onset Age of this Age Resolved Age Notes LastModified by Organization Details LastModified Time Mother Hypertensive disorder [email or web address] Not available 2017 12:02:08 Father Malignant neoplastic disease [email or web address] Not available 2017 12:02:20 Medical History Condition Response HIV or AIDS N Coronary Artery Disease N Gout N Kidney Stones N Hyperthyroidism N Hernia Y Head Trauma/Injury N Hypothyroidism N Lung Disease N Blood Clots N COPD N Depression N Pacemaker N Anxiety Disorder N Arthritis Y Cancer N Stroke N Leg or Foot Ulcers N Neck Injury N High Cholesterol N Liver Disease N Rheumatoid Arthritis N Fibromyalgia N Headaches N Kidney Disease N Heart Problems N Migraines N Thyroid Problems N Anemia N Multiple Sclerosis N Tendon Tear N Ulcers N Heart Attack ([place]) N Diabetes N Bleeding Disorder N Seizures/Epilepsy N Tuberculosis N Urinary Tract Infection N Back Problems N Diverticulitis N Asthma N Lupus N Peripheral Vascular Disease N Sleep Disorder N GERD/Reflux N Hepatitis N Aneurysm N Heart Disease N Pulmonary Embolism N Hypertension N Osteoporosis N Past Encounters Encounter ID Performer Location Encounter Start Date Encounter Closed Date Diagnosis/Indication Diagnosis SNOMED-CT Code Diagnosis ICD10 Code Diagnosis Note [id number] LEAH URIOSTEGUI PA-C [facility] [address] [place] [address] 03/01/2018 11:28:25 03/01/2018 12:58:36 Shoulder pain 56427558 M25.512 Degenerati ve joint disease of shoulder region 21275380 M19.012 Subdeltoid bursitis 7871 5003 M75.52 [id number] LEAH URIOSTEGUI PA-C [facility] [address] [place] [address] 03/30/2018 10:32:41 03/30/2018 13:02:27 Shoulder pain 43953004 M25.512 Degenerati ve joint disease of shoulder region 21383246 M19.012 Subdeltoid bursitis 7871 5003 M75.52 Strain of supraspinatus tendon 425848467 S46.012A [id number] LEAH URIOSTEGUI PA-C [facility] [address] [place] [address] 06/22/2018 10:34:25 06/22/2018 13:11:17 Shoulder pain 02034430 M25.512 Degenerati ve joint disease of shoulder region 49507588 M19.012 Subdeltoid bursitis 7871 5003 M75.52 Strain of supraspinatus tendon 258823928 S46.012S Health Concerns Section Related Observation LastModified by Organization Detai ls LastModified Time None Recorded Concern Status LastModified by Organization Details LastModified Time None Recorded Advance Directives Directive None Recorded Payers Encounter Date Sequence Insurance Name Policy Number Policy Tamayo Covered Member ID Tamayo Member ID Guarantor Name 03/01/2018 1 [employer] (MEDICARE REPLACEMENT PPO) [id number] Denton Emerson [id number] Denton Ki 03/30/2018 1 [employer] (MEDICARE REPLACEMENT PPO) [id number] Denton Emerson [id number] Denton Alejo 06/22/2018 1 [employer] (MEDICARE REPLACEMENT PPO) [id number] Denton Emerson [id number] Denton Emerson Notes Date Note Type Note Provider Name and Address Organization Details Recorded Time 03/01/2018 text/html Patient is presenting with complaints of left shoulder pain for 20+ years. 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 His current main sport is golf. He describes pain mostly in the posterior aspect of the shoulder with some pain in the deltoid area with mild pain in the AC joint distribution as well. Patient describes pain as constant, dull, aching, sharp, stabbing, throbbing, shooting with associated decreased ROM, locking, popping, and catching on the left shoulder as well. He reports instability and impingement on the left shoulder. He has had prior evaluation for shoulder pain with Dr. Billings. He has tried rest, ice, PT, NSAIDs, massage, and exercise without significant improvement. No numbness or weakness in the LUE. Patient also wtih history of prior knee surgery x10 on the right knee. VAS 3/10. LEAH URIOSTEGUI PA-C [address], [place], [address], [facility], [facility] 03/02/2018 13:22:52
--- OUTSIDE RECORDS SUMMARY | 2024-12-22 13:23 | XMS_ITS | Clinical Summary ---
Author Organization [facility] [address] Address [address] [place] [address] Care Team Providers Care Machine Printer Hose Name Role Phone Jose Cruz Alexandre MD Primary Care Provider [phone] Allergies No known active allergies Medications metoprolol XL (TOPROL XL) 100 mg 24 hr tablet take 1 tablet (100MG) by oral route every day 0 1 Active omega-3 fatty acids-fish oil 340-1,000 mg capsule take 4 tablets by Oral route every day 0 1 Active Additional Information Patient taking differently: 3 capsule oral Daily, Informant: Self, Reported on 07/04/2024 ramipril (ALTACE) 10 mg capsule take 1 Capsule by oral route every day 30 5 1 Active Additional Information Patient taking differently:10 mgoral 2 times daily, Informant: Self, Reported on 07/04/2024 atorvastatin (LIPITOR) 80 mg tablet Take 1 tablet (80 mg total) by mouth daily Active zinc 50 mg tablet Take 50 mg by mouth daily Active ALPRAZolam (XANAX) 0.5 mg tablet Take 1 tablet (0.5 mg total) by mouth 2 (two) times a day as needed 2 Active sildenafiL (VIAGRA) 100 mg tablet Take 1 tablet (100 mg total) by mouth as needed 2 Active UNABLE TO FIND Liposomal 1650 mg take 2 tablets by mouth once daily Active coenzyme Q10 200 mg capsule Take 1 capsule (200 mg total) by mouth daily Active MAGNESIUM GLYCINATE ORAL Take 400 mg by mouth daily Active UNABLE TO FIND Methol folats 100 mcg, acetam L carnatine 500 mg 1 tablet once daily Active Trelegy Ellipta 200-62.5-25 mcg inhaler 1 puff daily 4 Active dilTIAZem CD 120 mg 24 hr capsuleIndicatio ns:Paroxysmal atrial fibrillation (CMS/HCC) (HCC) TAKE 1 CAPSULE(120 MG) BY MOUTH DAILY 30 capsule 8 4 Active Additional Information Patient taking differently: 120 mg oral Daily, Informant: Self, Reported on 07/04/2024 hydroCHLOROthiaz ulises (HYDRODIURIL) 12.5 mg tablet Take 1 tablet (12.5 mg total) by mouth daily Active cholecalciferol, vitD3,/vit K2 (D3 PLUS K2 DOTS ORAL) Take 1 capsule by mouth daily Active aspirin 81 mg enteric coated tablet Take 1 tablet (81 mg total) by mouth daily 30 tablet 11 4 07/11/20 25 Active clopidogreL (PLAVIX) 75 mg tablet TAKE 1 TABLET(75 MG) BY MOUTH DAILY 90 tablet 3 4 Active Active Problems Problem Noted Date Diagnosed Date Chest pain 07/03/2024 ZARATE (dyspnea on exertion) 01/18/2023 Intervertebral disc disorder with radiculopathy of lumbar region 03/19/2021 Assessment & Plan (08/31/2023 2:38 PM CDT): 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 He has severe facet arthropathy at L4-5 greater than L3-4. There are Modic changes at L4-5. He returns to discuss surgical options. I discussed with him that my practice will be closing in December here at [facility]. Given his complex problems and degenerative scoliosis, I would recommend that he establish himself with another surgeon that can follow him with possible need for reoperation. I have given him the names of doctors Johnny Lambert and Yudi. We will not set up a scheduled follow-up appointment. 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 He is severe facet arthropathy at L4-5 greater than L3-4. There are Modic changes at L4-5. He reports that he is getting intermittent symptoms in his left leg with some intermittent left leg weakness. He wishes to off on surgery until the fall. He will schedule a follow- up appointment in the early fall to arrange for surgery. We will need to get an MRI of the lumbar spine without contrast to evaluate the L4-5 level. Surgery would involve L5-S1 posterior lumbar decompression and interbody fusion +/-L4-5 decompression and fusion based on the results of the MRI. I look forward to re-evaluating him in the early fall. Assessment & Plan (11/18/2021 5:42 PM WAGON DRILLER): Mr. 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 We discussed that any surgery would require removal of the inferior medial facet of L5 on the left, causing destabilization of the spine. This would require fusion with rods and screws. He reports that his symptoms are not bad enough to warrant this intervention at this time. He will return if he has worsening of symptoms and wishes to proceed with surgical intervention. Assessment & Plan (09/09/2021 2:53 PM CDT): Mr. Emerson has low back pain and left foot numbness. He did not get the CT in the interim between visits. We will order another CT of the lumbar spine to look for any pars defects. We will speak to him by phone about the results and surgical possibilities. He would like to avoid a fusion if at all possible. We will set up a scheduled follow-up months time. He is caring for his mother and reports that he cannot consider any surgical intervention while doing this. Assessment & Plan (03/19/2021 2:19 PM CDT): Mr. Emerson has low back pain and left foot numbness. He is quite active and his symptoms do not limit his acted activities significantly. He is a suggestion of a pars defect by MRI. We will get a CT of the lumbar spine to better define the bony structure and any pars defect. I plan to see him back in 6 months time with AP and flexion-extension lumbar spine films at that time. If he has any progression of symptoms in the interim, he will contact us for earlier evaluation. 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 failure 04/30/2015 Overview (02/18/2017): Hypertensive heart disease, benign, without CHF Hyperlipidemia 04/30/2015 Overview (02/18/2017): HLD (hyperlipidemia) Coronary arteriosclerosis in [place] artery 04/30 Overview (02/18/2017): CAD in [place] artery History of anticoagulant therapy 04/30/2015 Overview (02/18/2017): Chronic anticoagulation Paroxysmal atrial fibrillation (CMS/[facility]) 015 Overview (02/18/2017): PAF (paroxysmal atrial fibrillation) Adiposity 04/30/2015 Overview (02/18/2017): Obesity Knee pain 07/12/2014 Surgical History Surgery Date Site/Laterality Comments CORONARY ANGIOPLASTY 11/15/2018 - 11/14/2019 HERNIA REPAIR KNEE SURGERY Right 10 surgeries TOTAL SHOULDER REPLACEMENT 11/15/2016 - 11/14/2017 Right REPLACEMENT TOTAL KNEE 08/08/2015 Right REVISION TOTAL KNEE ARTHROPLASTY 10/29/2016 Right SHOULDER SURGERY Right THROAT SURGERY SHOULDER SURGERY 11/15/2017 - 11/14/2018 Left Stem cell treatment Medical History Medical History Date Comments Anxiety disorder Anxiety Hx Other Medical Knee surgery, r ight shoulder surgery; Comments: ELU 04/30/2015 - Hypertension Heart murmur Arrhythmia Hyperlipidemia Gout Arthritis A-fib (CMS/HCC) ([facility]) Arteriosclerotic heart disease History of ME (myocardial infarction) 2018 Asthma Cardiovascular disease High cholesterol Motion sickness Family History Medical History Relation Name Comments Cancer Father Other Father Colon, lung, li [place]; alive 02/2015 age 83; Diabetes Mother Heart disease Mother Hypertension Mother Other Mother Alive and well; Relation Name Status Comments Father (Age 84) Mother Alive Sister Alive Social History Tobacco Use Types Packs/Day Years Used Date Smoking Tobacco: Former Smokeless Tobacco: Former Tobacco Cessation:Counseling Given: Not Answered Alcohol Use Standard Drinks/Week Comments Yes 10 (1 standard drink = 0.6 oz pu re alcohol) PHQ-2 Answer Date Recorded PHQ-2 Total Score (If total score is 3 or more points, staff should administer the PHQ-9) 0 03/04/2021 Personal Safety Answer Date Recorded Have you ever been in or are you currently in a harmful physical or emotional relationship or is someone making you feel afraid or unsafe? Denies 07/11/2024 Sex and Gender Information Value Date Recorded Sex Assigned at Not on file Legal Sex Male 4:16 AM WAGON DRILLER Gender Identity Not on file Sexual Orientation Not on file Obstetrics History Last Filed Vital Signs Vital Sign Reading Time Taken Comments Blood Pressure 120/70 08/21/2024 9:48 AM CDT Pulse 71 08/21/2024 9:48 AM CDT Temperature 36.5 C (97.7 F) 07/11/2024 7:46 AM CDT Respiratory Rate 16 07/11/2024 7:46 AM CDT Oxygen Saturation 97% 08/21/2024 9:48 AM CDT Inhaled Oxygen Concentration - - Weight 91.6 kg (202 lb) 08/21/2024 9:48 AM CDT Height 188 cm (6' 2 ) 08/21/2024 9:48 AM CDT Body Mass Index 25.94 08/21/2024 9:48 AM CDT Plan of Treatment Health Maintenance Due Date Last Done Comments Colon Cancer Screening-Colonoscopy 1955 Hepatitis C Screening 1955 Prostate Cancer Screening-PSA 1955 DTaP/Tdap/Td Vaccine (1 - Tdap) 1966 Hepatitis B Screening 1973 Zoster Vaccine (1 of 2) 2005 Abdominal Aortic Aneurysm (AAA) Screen 2020 Pneumococcal vaccine 65+ (1 of 1 - PCV) 2020 Well Visit 65+ 2020 Depression Screening 03/04/2022 03/04/2021, 03/04/20 21 Influenza Vaccine (#1) 2024 Fall Risk Assessment 07/11/2025 07/11/2024 Medical Devices Implanted Type Area Phlebotomy Technologist Device Identifier Shelf Expiration Date Model / Serial / Lot [employer] [place] Synergy Xd Monorail 3mm 20mm 144cm Delivery System 1 Access Port [id number] - [id number] Implanted:Qty: 1 on 07/11/2024 by Emiliano Velazquez MD at [facility] [employer] 10/17/2025 [id number] / / [id number] [employer] Device Vascular Closure Femoral Artery Bioabsorbable Dual Method Vascade 6-7fr Collagen [id number] - [id number] Implanted:Qty: 1 on 07/11/2024 by Emiliano Velazquez MD at [facility] [employer] 01/03/2026 [id number] / / [id number] Insurance AETNA MEDICARE A[place]NA [place] [address] AETNA MEDICARE Advance Directives For more information, please contact: [phone] * Full Code (Latest Code Status on File) Date Activated Date Inactivated Comments 07/11/2024 11:53 AM 07/11/2024 6:28 PM Care Teams Machine Printer Hose Relationship Specialty Start Date End Date Jose Cruz Alexandre MD [address] [place] [address] PCP - General 08/14/11
--- OUTSIDE RECORDS SUMMARY | 2024-12-22 13:23 | XMS_ITS | Referral Summary ---
Author Organization [facility] [address] Address [address] [place] [address] Care Team Providers Care Division Sales Manager Name Role Phone Jose Cruz Alexandre MD Primary Care Provider [phone] Allergies No known active allergies Medications metoprolol [...] will be closing in December here at [facility]. Given his complex problems and degenerative [...] fall. Assessment & Plan (11/18/2021 5:42 PM IMPLEMENTATION COORDINATOR): Mr. Emerson has left-sided S1 radiculopathy with [...] Overview (02/18/2017): HLD (hyperlipidemia) Coronary arteriosclerosis in [place] artery 04/30 Overview (02/18/2017): CAD in [place] artery History of anticoagulant therapy 04/30/2015 Overview (02/18/2017): Chronic anticoagulation Paroxysmal atrial fibrillation (CMS/HCC) 015 Overview (02/18/2017): PAF (paroxysmal atrial fibrillation) Adiposity 04/30/2015 Overview (02/18/2017): Obesity Knee pain 07/12/2014 Social History Tobacco Use Types Packs/Day Years [...] on file Legal Sex Male 4:16 AM IMPLEMENTATION COORDINATOR Gender Identity Not on file Sexual Orientation [...] 08/21/2024 9:48 AM CDT Plan of Treatment Not on file Medical Devices Implanted Type Area Tool Worker Device Identifier Shelf Expiration Date Model / Serial / Lot [employer] Synergy Xd Monorail 3mm 20mm 144cm Delivery System 1 Access Port [id number] - [id number] Implanted:Qty: 1 on 07/11/2024 by Emiliano Velazquez MD at [facility] [employer] 10/17/2025 [id number] / / [id number] Device Vascular Closure Femoral Artery Bioabsorbable Dual Method Vascade 6-7fr Collagen [id number] - [id number] Implanted:Qty: 1 on 07/11/2024 by Emiliano Velazquez MD at [facility] [employer] 01/03/2026 [id number] / / [id number] [place] [address] T MEDICARE AETNA MEDICARE AETNA MEDICARE Advance Directives For more information, please contact: [phone] * Full Code (Latest Code Status on File) Date Activated Date Inactivated Comments 07/11/2024 11:53 AM 07/11/2024 6:28 PM Care Teams Division Sales Manager Relationship Specialty Start Date End Date Jose Cruz Alexandre MD [address] [place] [address] PCP - General 08/14/11
== END 2024-12-22 13:19 | disposition home or self-care (01) ==
PROVIDERS: PCP Internal Medicine; Visit Provider Internal Medicine
DX: M25.461 Effusion, right knee (principal); W19.XXXA Unspecified fall, initial encounter; Z96.651 Presence of right artificial knee joint
CPT/HCPCS: 73562